=== PATIENT | male | born 1990 | race African-American/Black ===

== ENCOUNTER 2021-01-19 00:34 | Inpatient (IN) ==
[2021-01-19 01:17] LABS: BASOPHILS % (AUTO) 0.4 % (0.2-1.0); EOSINOPHILS # (AUTO) 0.1 x10^3/uL (0.0-0.2); EOSINOPHILS % (AUTO) 0.8 % (0.9-2.9); HEMATOCRIT 32.2 % (42.0-54.0); HEMOGLOBIN 10.3 g/dL (13.5-18.0); LYMPHOCYTES # (AUTO) 1.5 X10^3/uL (1.3-2.9); LYMPHOCYTES % (AUTO) 14.5 % (21.0-51.0); MEAN CORPUSCULAR HEMOGLOBIN 27.1 pg (27.0-34.0); MEAN CORPUSCULAR VOLUME 84.7 fL (80.0-100.0); MEAN PLATELET VOLUME 7.6 fL (7.4-11.0); MONOCYTES # (AUTO) 1.3 x10^3/uL (0.3-0.8); MONOCYTES % (AUTO) 12.3 % (0.0-13.0); NEUTROPHILS # (AUTO) 7.3 x10^3/uL (2.2-4.8); PLATELET COUNT 200 X10^3/uL (150.0-450.0); RED BLOOD COUNT 3.81 X10^6/uL (4.7-6.0); RED CELL DISTRIBUTION WIDTH 17.7 % (11.6-16.5); WHITE BLOOD COUNT 10.1 X10^3/uL (3.6-10.0)
[2021-01-19 01:19] LABS: ALANINE AMINOTRANSFERASE 514 Units/L (12-78); ALBUMIN 2.5 g/dL (3.4-5.0); ALKALINE PHOSPHATASE 158 Units/L (46-116); ASPARTATE AMINO TRANSFERASE 206 Units/L (15-37); BLOOD UREA NITROGEN 27 mg/dL (7-18); CALCIUM 8.1 mg/dL (8.5-10.1); CARBON DIOXIDE 25.7 mmol/L (21-32); CHLORIDE 104 mmol/L (98-107); COR CA(FOR HYPOALB) 9.3 mg/dL (8.5-10.1); CREATININE 1.67 mg/dL (0.70-1.30); SODIUM 137 mmol/L (136-145); TOTAL PROTEIN 6.8 g/dL (6.4-8.2); eGFR NON BLACK RACES 51 (>60)
[2021-01-19] MEDS ORDERED: NS 1000 ML 1,000 ML ONE ×2 (02:00→07:55)
[2021-01-19] MEDS ORDERED: NS 1000 ML 1,000 ML IV ONE (02:06)
--- NOTE | 2021-01-19 02:35 | RAD ---
PROCEDURE: Acute Abdomen Series .HISTORY: Right upper quadrant pain since yesterday with hemoptysis.TECHNIQUE: AP supine and upright abdomen with AP chest x-ray views .COMPARISON: 12/01/2020 chest x-ray.TECHNICAL QUALITY: Satisfactory .FINDINGS:Unchanged cardiomegaly.Normal central vascularity.Clear lungs.No pneumoperitoneum.Mild gas and feces in the colon without abnormal distention. No obstruction or ileus. Mild gas in the stomach.No organomegaly.No abnormal calcifications.No acute bony abnormality.IMPRESSION:1. Nonspecific bowel gas pattern.2. Unchanged cardiomegaly.Electronically signed by: Carlos De La O (Jan 19, 2021 02:33:50)
[2021-01-19] MEDS ORDERED: MORPHINE SULFATE INJ 2 MG INJ IVP ONE ×2 (04:31→07:42)
[2021-01-19] MEDS ORDERED: ZOFRAN INJ 4 MG VIAL IVP ONE (04:31)
--- NOTE | 2021-01-19 04:34 | DR.GENAD ---
HPI Time Seen Time Seen by Provider: 01/19/21 04:26 PCP Primary Care Physician: annmarie HPI Comment HPI Comment: Patient presents with RUQ pain and thinks something is wrong with his gallbladder. Notes that he has been "coughing up blood" for the past 2-3 days. Denies any fever, bad food exposure of known sick contact. Complaint/Symptoms Chief Complaint:: pt c/o coughing up blood . pt's friend had a gatorade bottle with pinkish colored suptum in the bottle COVID-19 Coronavirus risk:travel/contact w/high risk person: No Has patient experienced Coronavirus symptoms: No Source History Provided: Patient Mode of Arrival Mode of Arrival: Wheelchair Timing Onset of Chief Complaint: 01/19/21 PMH PMH Past Medical History: Yes Past Medical History: Asthma and Hypertension Past Medical History Comment: cardiomegaly Past Surgical History: No Family History History of Family Medical Conditions: No Social History Type of Tobacco Use: Cigarettes Does any household member use tobacco: Yes Alcohol Use: Occasionally Do you use any recreational Drugs:: No Lives With: Family Lives Where: Home Travel Risk Coronavirus risk:travel/contact w/high risk person: No Has patient experienced Coronavirus symptoms: No Infectious screening In the last 2 months have you had wt loss of >10#?: NO Have you had fever, night sweats or hemotysis?: No Have you traveled outside the country in the last 6 months?: No Isolation: Standard ROS Review of Systems Constitutional: See HPI All Other Systems: Reviewed and Negative PE Vital Signs Vitals: Temperature 99.1 F Pulse Rate 103 Respiratory Rate 20 Blood Pressure [Right Arm] 129/81 Blood Pressure 111/72 O2 Sat by Pulse Oximetry 98 General Limitations: No Limitations General Appearance: Alert and In No Apparent Distress Head Head Exam: Normal Inspection, Atraumatic and Normocephalic Eyes Eye exam: Normal Appearance, PERRL and EOMI ENT ENT Exam: Normal Exam Neck Neck Exam: Normal Inspection and Trachea Midline Chest Chest Inspection: Normal Inspection and Symmetric Chest Wall Rise Respiratory Respiratory Exam: Normal Lung Sounds Bilat Respiratory Exam: Bilateral: Clear to Auscultation Cardiovascular Cardiovascular Exam: Regular Rate, Normal Rhythm and Normal Heart Sounds Abdominal Exam Abdominal Exam: Normal Inspection, Normal Bowel Sounds and Tenderness Abdominal Tenderness: Diffuse Neurologic Neurological Exam: Alert and Oriented X3 Psychiatric Psychiatric Exam: Normal Affect and Normal Mood Skin Skin Exam: Warm, Dry and Intact ROR Labs Reviewed Result Diagrams: 01/19/21 00:57 04 00:57 Laboratory: WBC 10.1 X10^3/uL (3.6-10.0) H 01/19/21 00:57 RBC 3.81 X10^6/uL (4.7-6.0) L 01/19/21 00:57 Hgb 10.3 g/dL (13.5-18.0) L 01/19/21 00:57 Hct 32.2 % (42.0-54.0) L 01/19/21 00:57 MCV 84.7 fL (80.0-100.0) 01/19/21 00:57 MCH 27.1 pg (27.0-34.0) 01/19/21 00:57 MCHC 32.0 g/dL (33.0-35.0) L 01/19/21 00:57 RDW 17.7 % (11.6-16.5) H 01/19/21 00:57 Plt Count 200 X10^3/uL (150.0-450.0) 01/19/21 00:57 MPV 7.6 fL (7.4-11.0) 01/19/21 00:57 Neut % (Auto) 72.0 % (42.0-75.0) 01/19/21 00:57 Lymph % (Auto) 14.5 % (21.0-51.0) L 01/19/21 00:57 [place] % (Auto) 12.3 % (0.0-13.0) 01/19/21 00:57 Eos % (Auto) 0.8 % (0.9-2.9) L 01/19/21 00:57 Baso % (Auto) 0.4 % (0.2-1.0) 01/19/21 00:57 Neut # (Auto) 7.3 x10^3/uL (2.2-4.8) H 01/19/21 00:57 Lymph # (Auto) 1.5 X10^3/uL (1.3-2.9) 01/19/21 00:57 [place] # (Auto) 1.3 x10^3/uL (0.3-0.8) H 01/19/21 00:57 Eos # (Auto) 0.1 x10^3/uL (0.0-0.2) 01/19/21 00:57 Baso # (Auto) 0.0 X10^3/uL (0.0-0.1) 01/19/21 00:57 Absolute Nucleated RBC 0.1 /100WBC 01/19/21 00:57 Sodium 137 mmol/L (136-145) 01/19/21 00:57 Corrected Sodium TNP 01/19/21 00:57 Potassium 4.5 mmol/L (3.5-5.1) 01/19/21 00:57 Chloride 104 mmol/L (98-107) 01/19/21 00:57 Carbon Dioxide 25.7 mmol/L (21-32) 01/19/21 00:57 BUN 27 mg/dL (7-18) H 01/19/21 00:57 Creatinine 1.67 mg/dL (0.70-1.30) H 01/19/21 00:57 Est GFR (MDRD) Af Amer > 60 (>60) 01/19/21 00:57 Est GFR (MDRD) Non-Af 51 (>60) L 01/19/21 00:57 Glucose 105 mg/dL (65-99) H 01/19/21 00:57 Calcium 8.1 mg/dL (8.5-10.1) L 01/19/21 00:57 Corrected Calcium 9.3 mg/dL (8.5-10.1) 01/19/21 00:57 Total Bilirubin 0.90 mg/dL (0.2-1.0) 01/19/21 00:57 AST 206 Units/L (15-37) H 01/19/21 00:57 ALT 514 Units/L (12-78) H 01/19/21 00:57 Alkaline Phosphatase 158 Units/L (46-116) H 01/19/21 00:57 Creatine Kinase 162 Units/L (39-308) 01/19/21 00:57 CK-MB (CK-2) 1.5 ng/mL (0-4.0) 04 00:57 CK/CKMB % Calc 0.9 % (<4) 01/19/21 00:57 Troponin I 0.12 ng/mL (0-1.5) 01/19/21 00:57 B-Natriuretic Peptide 1840 pg/mL (0-79) H* 01/19/21 00:57 Total Protein 6.8 g/dL (6.4-8.2) 01/19/21 00:57 Albumin 2.5 g/dL (3.4-5.0) L 01/19/21 00:57 Globulin 4.3 g/dL (2.5-4.5) 01/19/21 00:57 Albumin/Globulin Ratio 0.6 Ratio (1.1-2.1) L 01/19/21 00:57 XRAY X-ray Results: PROCEDURE: CT Abdomen and Pelvis without Contrast . HISTORY: Right upper quadrant pain and hemoptysis. TECHNIQUE: Axial images were performed through the abdomen and pelvis without the administration of IV contrast with multiplanar reformations . Oral contrast was not administered . Dose reduction techniques including Automated Exposure Control (AEC) and adjustment of mA and kV were utilized . COMPARISON: 12/25/2020. TECHNICAL QUALITY: Satisfactory . FINDINGS: Consolidation right lower lobe consistent with pneumonia. Some linear scar versus discoid atelectasis left base. Heart size upper limits of normal. Liver, spleen, adrenals, pancreas show no abnormality. Kidneys show no stones or obstruction. Some nonspecific perinephric stranding both kidneys. Normal biliary tract. No abdominal ascites or pneumoperitoneum. Normal aorta. Some stranding throughout the mesentery could be related to edema or inflammation with no loculated fluid collections. No bowel obstruction or inflammation and normal appendix right lower quadrant. Pelvis shows small amount of fluid in the rectovesical pouch could be related to inflammation. No pelvic masses and normal urinary bladder. No acute bony abnormality. IMPRESSION: 1. Mesenteric stranding that could be related to inflammation or edema with the etiology not apparent from the study with small amount of ascites in the rectovesical pouch. 2. No other abnormality involving abdomen or pelvis. 3. Right lower lobe pneumonia. Electronically signed by: Carlos De La O (Jan 19, 2021 05:05:47) PROCEDURE: Acute Abdomen Series . HISTORY: Right upper quadrant pain since yesterday with hemoptysis. TECHNIQUE: AP supine and upright abdomen with AP chest x-ray views . COMPARISON: 12/01/2020 chest x-ray. TECHNICAL QUALITY: Satisfactory . FINDINGS: Unchanged cardiomegaly. Normal central vascularity. Clear lungs. No pneumoperitoneum. Mild gas and feces in the colon without abnormal distention. No obstruction or ileus. Mild gas in the stomach. No organomegaly. No abnormal calcifications. No acute bony abnormality. IMPRESSION: 1. Nonspecific bowel gas pattern. 2. Unchanged cardiomegaly. Electronically signed by: Carlos De La O (Jan 19, 2021 02:33:50) Opioid Opioid Risk Tool Age (Rambo box if 16-45): Yes History of Preadolescent Sexual Abuse: No Total: 1 Total Score Risk Category: Low Risk Copyright: [facility] predicting aberrant behaviors Diagnosis Discharge Problem: Pneumonia Qualifiers: Pneumonia type: due to unspecified organism Laterality: right Lung location: lower lobe of lung Qualified Code(s): J18.9 - Pneumonia, unspecified organism CHF (congestive heart failure) Qualifiers: Heart failure type: unspecified Heart failure chronicity: chronic Qualified Code(s): I50.9 - Heart failure, unspecified
[2021-01-19] MEDS ORDERED: MORPHINE SULFATE INJ 2 MG INJ ONE ×2 (04:38→07:55)
[2021-01-19] MEDS ORDERED: ZOFRAN INJ 4 MG VIAL ONE (04:38)
[2021-01-19 05:04] LABS: CKMB % 0.9 % (<4); CREATINE KINASE MB 1.5 ng/mL (0-4.0); TROPONIN I 0.12 ng/mL (0-1.5)
--- NOTE | 2021-01-19 05:07 | CT ---
PROCEDURE: CT Abdomen and Pelvis without Contrast .HISTORY: Right upper quadrant pain and hemoptysis.TECHNIQUE: Axial images were performed through the abdomen and pelvis without the administration of IV contrast with multiplanar reformations . Oral contrast was not administered . Dose reduction techniques including Automated Exposure Control (AEC) and adjustment of mA and kV were utilized .COMPARISON: 12/25/2020.TECHNICAL QUALITY: Satisfactory .FINDINGS:Consolidation right lower lobe consistent with pneumonia. Some linear scar versus discoid atelectasis left base. Heart size upper limits of normal.Liver, spleen, adrenals, pancreas show no abnormality. Kidneys show no stones or obstruction. Some nonspecific perinephric stranding both kidneys.Normal biliary tract.No abdominal ascites or pneumoperitoneum.Normal aorta.Some stranding throughout the mesentery could be related to edema or inflammation with no loculated fluid collections.No bowel obstruction or inflammation and normal appendix right lower quadrant.Pelvis shows small amount of fluid in the rectovesical pouch could be related to inflammation. No pelvic masses and normal urinary bladder.No acute bony abnormality.IMPRESSION:1. Mesenteric stranding that could be related to inflammation or edema with the etiology not apparent from the study with small amount of ascites in the rectovesical pouch.2. No other abnormality involving abdomen or pelvis.3. Right lower lobe pneumonia.Electronically signed by: Carlos De La O (Jan 19, 2021 05:05:47)
[2021-01-19] MEDS ORDERED: LASIX IVP ONE ×2 (05:09→05:10)
[2021-01-19] MEDS ORDERED: NS 250 ML IV 250 ML IV ONE (07:55)
[2021-01-19] MEDS ORDERED: ZITHROMAX INJ 500 MG VIAL IV ONE (07:55)
[2021-01-19] MEDS: ZITHROMAX INJ 500 MG VIAL 500 MG in NS 250 ML IV 250 ML IV SCH ×2 (08:09→09:11)
[2021-01-19] MEDS: NS 1000 ML 1,000 ML IV SCH (08:09)
[2021-01-19 08:27] LABS: CREATINE KINASE MB 1.4 ng/mL (0-4.0); TROPONIN I 0.11 ng/mL (0-1.5)
[2021-01-19] MEDS ORDERED: LEVAQUIN TAB 750 MG PO SCH (09:00)
[2021-01-19] MEDS ORDERED: LASIX PO SCH (09:37)
[2021-01-19] MEDS ORDERED: LR 1000 ML IV 1,000 ML IV ONE (09:39)
[2021-01-19] MEDS ORDERED: DILAUDID INJ IVP PRN (09:41)
[2021-01-19] MEDS: TORADOL 30 MG VIAL IVP PRN ×2 (09:52→23:20)
[2021-01-19] MEDS: COREG TAB 12.5 MG PO SCH ×2 (10:00→20:52)
[2021-01-19] MEDS: ENTRESTO 24/26 MG TAB PO SCH ×2 (10:00→20:52)
[2021-01-19 11:14] VITALS: BMI 26.4
[2021-01-19] MEDS ORDERED: ZOFRAN INJ 4 MG VIAL IVP PRN (12:45)
[2021-01-19 14:53] LABS: CKMB % 1.3 % (<4); CREATINE KINASE MB 1.5 ng/mL (0-4.0); TROPONIN I 0.1 ng/mL (0-1.5)
[2021-01-19 20:32] LABS: CKMB % 1.9 % (<4); CREATINE KINASE MB 2.1 ng/mL (0-4.0); TROPONIN I 0.21 ng/mL (0-1.5)
[2021-01-19] MEDS ORDERED: XOPENEX 1.25 MG/3 ML NEBULE NEB ONE (20:54)
[2021-01-19] MEDS: XOPENEX 1.25 MG/3 ML NEBULE NEB SCH (21:12)
[2021-01-20] MEDS: NS 1000 ML 1,000 ML IV SCH ×4 (00:45→14:51)
[2021-01-20] MEDS: ADRENALINE CHL INJ IVP PRN ×7 (01:02→12:59)
--- NOTE | 2021-01-20 04:29 | RAD ---
PROCEDURE: Chest X-ray 1 View .HISTORY: Follow-up chest pain.TECHNIQUE: PA view.COMPARISON: 12/01/2020.TECHNICAL QUALITY: Satisfactory .FINDINGS:Unchanged cardiomegaly.Mediastinum and hilar regions show no masses or lymphadenopathy .Normal central vascularity .No pulmonary consolidation, masses, pleural fluid, or pneumothorax .No acute bony abnormality .IMPRESSION:Unchanged cardiomegaly with no other evidence of active disease.Electronically signed by: Carlos De La O (Jan 20, 2021 04:27:31)
[2021-01-20] MEDS: LEVAQUIN PREMIX IV 750 MG 750 MG/150 ML BAG IV SCH ×2 (06:08→14:51)
[2021-01-20 06:11] LABS: BASOPHILS % (AUTO) 0.2 % (0.2-1.0); EOSINOPHILS % (AUTO) 0.1 % (0.9-2.9); HEMATOCRIT 34.3 % (42.0-54.0); HEMOGLOBIN 10.8 g/dL (13.5-18.0); LYMPHOCYTES # (AUTO) 1.9 X10^3/uL (1.3-2.9); LYMPHOCYTES % (AUTO) 9.6 % (21.0-51.0); MEAN CORPUSCULAR HEMOGLOBIN 26.6 pg (27.0-34.0); MEAN CORPUSCULAR HGB CONC 31.5 g/dL (33.0-35.0); MEAN CORPUSCULAR VOLUME 84.5 fL (80.0-100.0); MEAN PLATELET VOLUME 8.1 fL (7.4-11.0); MONOCYTES # (AUTO) 2.1 x10^3/uL (0.3-0.8); MONOCYTES % (AUTO) 11.1 % (0.0-13.0); NEUTROPHILS # (AUTO) 15.3 x10^3/uL (2.2-4.8); PLATELET COUNT 190 X10^3/uL (150.0-450.0); RED BLOOD COUNT 4.05 X10^6/uL (4.7-6.0); RED CELL DISTRIBUTION WIDTH 17.6 % (11.6-16.5); WHITE BLOOD COUNT 19.3 X10^3/uL (3.6-10.0)
[2021-01-20 06:24] LABS: ALANINE AMINOTRANSFERASE 387 Units/L (12-78); ALBUMIN 2.3 g/dL (3.4-5.0); ALKALINE PHOSPHATASE 150 Units/L (46-116); ASPARTATE AMINO TRANSFERASE 113 Units/L (15-37); BLOOD UREA NITROGEN 34 mg/dL (7-18); CALCIUM 8.1 mg/dL (8.5-10.1); CARBON DIOXIDE 24.9 mmol/L (21-32); CHLORIDE 103 mmol/L (98-107); COR CA(FOR HYPOALB) 9.5 mg/dL (8.5-10.1); SODIUM 135 mmol/L (136-145); TOTAL PROTEIN 6.7 g/dL (6.4-8.2); eGFR NON BLACK RACES 54 (>60)
[2021-01-20] MEDS: ENTRESTO 24/26 MG TAB PO SCH ×2 (08:41→21:58)
[2021-01-20] MEDS: ZITHROMAX INJ 500 MG VIAL 500 MG in NS 250 ML IV 250 ML IV SCH (08:41)
[2021-01-20] MEDS: COREG TAB 12.5 MG PO SCH (08:41)
[2021-01-20] MEDS: XOPENEX 1.25 MG/3 ML NEBULE NEB SCH ×4 (09:20→21:05)
[2021-01-20] MEDS: LEVOPHED INJ 8 MG in D5W 250 ML IV 242 ML IV PRN ×2 (10:45→15:23)
[2021-01-20] MEDS ORDERED: LEVOPHED INJ 8 MG in D5W 250 ML IV 242 ML IV PRN (10:45)
[2021-01-20] MEDS ORDERED: NS 500 ML IV 500 ML IV ONE (10:48)
[2021-01-20 10:53] LABS: CREATINE KINASE MB 1.9 ng/mL (0-4.0); TROPONIN I 0.41 ng/mL (0-1.5)
[2021-01-20] MEDS: SODIUM BICARBONATE 8.4% INJ ADULT IVP PRN ×4 (11:08→13:09)
[2021-01-20 11:18] LABS: BILIRUBIN,URINE 1+ (NEGATIVE); BLOOD/HEMOGLOBIN,URINE 1+ (NEGATIVE); GLUCOSE, URINE NEGATIVE (NEGATIVE); KETONES,URINE 1+ (NEGATIVE); LEUKOCYTE ESTERASE ,URINE 1+ (NEGATIVE); NITRITES,URINE NEGATIVE (NEGATIVE); PROTEIN,URINE 2+ (NEGATIVE); UROBILINOGEN,URINE 3+ (NORMAL)
[2021-01-20] MEDS: ADRENALINE CHL INJ 3 MG in NS 250 ML IV 247 ML IV PRN ×2 (11:20→23:00)
[2021-01-20] MEDS: DIPRIVAN PREMIX 1 GRAM IV 1,000 MG/100 ML VIAL IV PRN ×3 (11:21→19:50)
[2021-01-20] MEDS ORDERED: DIPRIVAN PREMIX 1 GRAM IV 1,000 MG/100 ML VIAL ONE (11:21)
[2021-01-20 11:49] LABS: ABG BASE EXCESS -16.1 mmol/L (-2.0-2.0)
[2021-01-20 11:54] LABS: ABG HCO3 12.7 mmol/L (22-26)
--- NOTE | 2021-01-20 11:54 | RAD ---
HISTORYET TUBE PLACMENT, UNRESPONSIVESTUDYCHEST, 1 [id number]/08/2021, the study from 7 hours agoFINDINGSThe endotracheal tube is anatomic in position in the trachea.Abnormal opacity in the right lung base could be pneumonia, better appreciated on the CT 01/19/2021. Left lung clear. No pleural effusion or pneumothorax.The heart size is magnified.Bones are unremarkable.EKG leads are noted.IMPRESSION1. Uncomplicated intubation2. Unchanged right lower lobe pneumoniaElectronically signed by: Elvin Mayfield (Jan 20, 2021 11:51:43)
[2021-01-20 11:59] LABS: APPEARANCE,URINE CLOUDY (CLEAR); BACTERIA,URINE 1+ /HPF (NEGATIVE); COLOR,URINE YELLOW (YELLOW); SQUAMOUS EPITHELIAL CELL,UR FEW /HPF (NEGATIVE); TRANSITIONAL EPI CELLS,URINE MANY /HPF (NEGATIVE)
[2021-01-20 12:00] LABS: MUCUS,URINE FEW /HPF (NEGATIVE); SPERM,URINE RARE /HPF (NEGATIVE)
[2021-01-20] MEDS ORDERED: LASIX IVP ONE (18:23)
[2021-01-20] MEDS ORDERED: COREG TAB 12.5 MG PO SCH (21:00)
[2021-01-20] MEDS ORDERED: NORCURON INJ 10 MG VIAL ONE (21:15)
--- NOTE | 2021-01-20 22:14 | RAD ---
EXAM: CHEST X-RAYHISTORY: Verification of old G-tube and central line placement.TECHNIQUE: AP chest x-ray dated January 20, 2021 at 9:51 PM.COMPARISON: CXR dated January 20, 2021 at 10:59 AM.FINDINGS:Right internal jugular central venous catheter with distal tip in the proximal cavoatrial junction (adequate position). Recommend careful clinical correlation to ensure venous blood return. A nasogastric tube is noted in situ with the distal tip in the lateral aspect of the proximal to middle body of the stomach. An endotracheal tube is noted in situ with the distal tip approximately 5.6 cm above the omer (adequate position).There is evidence for cardiomegaly. The pulmonary vascularity and interstitial markings are diffusely prominent, consistent with mild CHF or volume overload in the appropriate clinical setting; differential diagnosis includes (but is not limited to) mild bronchitis and interstitial pneumonia in the appropriate clinical setting.There is no gross focal lung consolidation, pleural effusion, or pneumothorax seen. The visualized bony structures are within normal limits.IMPRESSION:1. Findings consistent with mild CHF or volume overload in the appropriate clinical setting (with significant interval progression of infiltrates compared with the previous exam); DDX includes (but is not limited to) mild bronchitis and interstitial pneumonia in the appropriate clinical setting.2. Recommend clinical correlation and appropriate follow-up CXR evaluation to ensure interval clearance as clinically warranted.3. Right internal jugular central venous catheter with distal tip in the proximal cavoatrial junction (adequate position). Recommend careful clinical correlation to ensure venous blood return.4. A nasogastric tube is noted in situ with the distal tip in the lateral aspect of the proximal to middle body of the stomach.5. An endotracheal tube is noted in situ with the distal tip approximately 5.6 cm above the omer (adequate position).Electronically signed by: Phil Jackson (Jan 20, 2021 22:12:00)
[2021-01-20 22:42] VITALS: BP 112/75
[2021-01-21] MEDS ORDERED: LASIX PO SCH (10:00)
[2021-01-24 06:34] LABS: HEPATITIS B SURFACE ANTIGEN Negative (Negative)
== END 2021-01-20 22:35 | disposition short-term general hospital (02) | DRG 208 ==
LOC: MED/SURG 00:35 → ER 00:35 → MED/SURG 09:10 → ICU 01-20 10:20
PROVIDERS: ADMIT Obstetrics & Gynecology Obstetrics; ATTEND Obstetrics & Gynecology Obstetrics
DX: J18.8 Other pneumonia, unspecified organism; Z66 Do not resuscitate; Z20.822 Contact with and (suspected) exposure to COVID-19; R94.31 Abnormal electrocardiogram [ECG] [EKG]; J90 Pleural effusion, not elsewhere classified; I50.9 Heart failure, unspecified

== ENCOUNTER 2023-10-31 23:27 | Inpatient (IN) ==
--- NOTE | 2023-11-01 01:00 | DR.EXTPAIN ---
HPI Time seen Time Seen by Provider: 10/31/23 23:58 PCP Primary Care Physician: None Complaint/Symptoms Chief Complaint Doctor Comments: Patient has h/o asthma and h/o CHF .This am he began to feel sob and have abdl pain.Patient is noncompliant with his meds. He should be taking lasix 40mg daily,eliquis 5mg,atorvastatin 40mg,Zebeta 10mg,digoxin 250mcg,[id number].Patient also has a h/o methamphetamine use.Patient denies:Fever,productive cough,dizziness,n,v,back pain. Chief Complaint:: Patient ambulatory into the ED today with c/o shortness of breath and stomach pains. Patient's significant other states he has been in the bed all day stating he is having a hard time breathing. In triage he is observed grunting but no respiratory distress is noted. He is taking full, deep breaths. Self Treatment fo Chief Complaint: albuterol breathing tx today COVID-19 Coronavirus risk:travel/contact w/high risk person: No Has patient experienced Coronavirus symptoms: Yes Coronavirus symptoms experienced: Shortness of Breath Source History Provided: Patient and Significant Other Mode of arrival Mode of Arrival: Ambulatory Timing Onset of Chief Complaint: 10/31/23 PMH PMH Past Medical History: Yes Past Medical History: CHF and Hypertension Past Surgical History: Yes Surgical History: Unknown Family History History of Family Medical Conditions: No Family Medical History: Hypertension Social History Does patient currently use any type of tobacco product: Yes Have you used tobacco products in the last 12 months: Yes Type of Tobacco Use: Cigarettes Does any household member use tobacco: Yes Alcohol Use: Occasionally Do you use any recreational Drugs:: No Lives With: Spouse Lives Where: Home Travel Risk Coronavirus risk:travel/contact w/high risk person: No Has patient experienced Coronavirus symptoms: Yes Coronavirus symptoms experienced: Shortness of Breath Infectious screening In the last 2 months have you had wt loss of >10#?: NO Have you had fever, night sweats or hemotysis?: No Have you traveled outside the country in the last 6 months?: No Isolation: Standard ROS Review of Systems Constitutional: Other (Patient is grunting and lethargic) Eyes: No Symptoms Reported ENTM: No Symptoms Reported Respiratoy: Dry Cough Cardiovascular: Chest Pain Gastrointestinal/Abdominal: Abdominal Pain Genitourinary: No Symptoms Reported Neurological: No Symptoms Reported Musculoskeletal: No Symptoms Reported Integumentary: No Symptoms Reported Hematologic/Lymphatic: No Symptoms Reported Endocrine: No Symptoms Reported Psychiatric: No Symptoms Reported All Other Systems: Reviewed and Negative PE Vital Signs Vitals: Vital Signs Pulse Rate [Left Brachial] 105 Pulse Rate [Left Brachial] 103 Pulse Rate [Left Brachial] 106 Pulse Rate [Left Brachial] 106 Pulse Rate 105 Pulse Rate 105 Pulse Rate 108 Pulse Rate 105 Pulse Rate 103 Pulse Rate 104 Pulse Rate 105 Pulse Rate 108 Pulse Rate 107 Pulse Rate 105 Pulse Rate 109 Pulse Rate 108 Pulse Rate 104 Pulse Rate 104 Pulse Rate 107 Pulse Rate 107 Pulse Rate 105 Pulse Rate 104 Pulse Rate 105 Pulse Rate 106 Pulse Rate 107 Respiratory Rate 23 Respiratory Rate 18 Respiratory Rate 20 Respiratory Rate 20 Respiratory Rate 21 Respiratory Rate 21 Respiratory Rate 20 Respiratory Rate 22 Respiratory Rate 20 Blood Pressure [Left Arm] 159/107 Blood Pressure [Left Arm] 163/107 Blood Pressure [Left Arm] 141/90 Blood Pressure [Left Arm] 138/91 Blood Pressure [Left Arm] 149/111 Blood Pressure 169/98 Blood Pressure 163/107 Blood Pressure 159/107 Blood Pressure 163/107 Blood Pressure 161/111 Blood Pressure 143/98 Blood Pressure 143/98 Blood Pressure 141/90 Blood Pressure 138/91 Blood Pressure 153/105 Blood Pressure 147/105 Blood Pressure 149/111 Blood Pressure 149/111 Blood Pressure 137/106 Blood Pressure 132/88 Blood Pressure 162/98 Blood Pressure 158/101 O2 Sat by Pulse Oximetry 98 O2 Sat by Pulse Oximetry 99 O2 Sat by Pulse Oximetry 97 O2 Sat by Pulse Oximetry 99 O2 Sat by Pulse Oximetry 98 O2 Sat by Pulse Oximetry 96 O2 Sat by Pulse Oximetry 97 O2 Sat by Pulse Oximetry 98 O2 Sat by Pulse Oximetry 98 O2 Sat by Pulse Oximetry 96 O2 Sat by Pulse Oximetry 95 O2 Sat by Pulse Oximetry 99 O2 Sat by Pulse Oximetry 95 O2 Sat by Pulse Oximetry 100 O2 Sat by Pulse Oximetry 98 O2 Sat by Pulse Oximetry 99 O2 Sat by Pulse Oximetry 98 O2 Sat by Pulse Oximetry 97 O2 Sat by Pulse Oximetry 96 O2 Sat by Pulse Oximetry 97 O2 Sat by Pulse Oximetry 95 O2 Sat by Pulse Oximetry 99 O2 Sat by Pulse Oximetry 100 O2 Sat by Pulse Oximetry 100 O2 Sat by Pulse Oximetry 100 General Limitations: No Limitations General Appearance: Lethargic Head Head Exam: Normal Inspection Eyes Eye exam: Normal Appearance ENT ENT Exam: Normal Exam Neck Neck Exam: Normal Inspection Chest Chest Inspection: Normal Inspection Respiratory Respiratory Exam: Normal Lung Sounds Bilat Respiratory Exam: Bilateral: Decreased Breath Sounds Cardiovascular Cardiovascular Exam: Regular Rate and Tachycardia Abdominal Exam Abdominal Exam: Normal Inspection, Normal Bowel Sounds and Soft Extremities Extremities Exam: Normal Inspection Back Back Exam: Normal Inspection Neurological Neurological Exam: Alert, Oriented X3 and CN II-XII Intact Psychiatric Psychiatric Exam: Normal Affect and Normal Mood Skin Skin Exam: Warm, Dry, Intact and Normal Color MDM Differential Diagnosis Differential Diagnosis: Other (CHF,SC,Pneumonia,electrolyte disorder,covid- 19,rsv,influenza a,b) COURSE Treatment Treatment: Patient was brought to a monitored room and IV access was initiated. Labs and tests were ordered. Patient received a fluid bolus of 500 cc for his tachycardia. His chest x-ray revealed cardiomegaly, mild chf. His labs revealed a BNP of 2670. Patient was given a DuoNeb, Solu-Medrol 125 mg IV, Lasix 60 mg IV. Patient's creatinine is mildly elevated 1.34, his COVID-19, influenza a and B, RSV were all negative, his D-dimer is 0.79, his troponin #1 is 114 and troponin #2 is 96.6. Patient's EKG #1 revealed T wave inversions in II, II, and aVF and EKG #2 revealed T wave inversions in II, III, aVF and V4 through V6. Patient has had total urine output of [address] case [address] Leahy and he would like to admit the patient for CHF exacerbation. Patient has been stable in the ED. ROR Labs Reviewed Laboratory Results Reviewed?: Yes 11/01/23 01:34 11/01/23 01:34 Laboratory: WBC 11.0 X10^3/uL (3.6-10.0) H 11/01/23 01:34 RBC 4.07 X10^6/uL (4.7-6.0) L 11/01/23:34 Hgb 12.1 g/dL (13.5-18.0) L 11/01/23 01:34 Hct 37.0 % (42.0-54.0) L 11/01/23:34 MCV 91.0 fL (80.0-100.0) 11/01/23 01:34 MCH 29.6 pg (27.0-34.0) 11/01/23 01:34 MCHC 32.5 g/dL (33.0-35.0) L 11/01/23:34 RDW 16.0 % (11.6-16.5) 11/01/23 01:34 Plt Count 214 X10^3/uL (150.0-450.0) 11/01/23 01:34 MPV 7.7 fL (7.4-11.0) 11/01/23 01:34 Neut % (Auto) 61.7 % (42.0-75.0) 11/01/23 01:34 Lymph % (Auto) 28.1 % (21.0-51.0) 11/01/23 01:34 [place] % (Auto) 7.0 % (0.0-13.0) 11/01/23 01:34 Eos % (Auto) 2.8 % (0.9-2.9) 11/01/23 01:34 Baso % (Auto) 0.4 % (0.2-1.0) 11/01/23 01:34 Neut # (Auto) 6.8 x10^3/uL (2.2-4.8) H 11/01/23 01:34 Lymph # (Auto) 3.1 X10^3/uL (1.3-2.9) H 11/01/23 01:34 [place] # (Auto) 0.8 x10^3/uL (0.3-0.8) 11/01/23 01:34 Eos # (Auto) 0.3 x10^3/uL (0.0-0.2) H 11/01/23 01:34 Baso # (Auto) 0.0 X10^3/uL (0.0-0.1) 11/01/23:34 Absolute Nucleated RBC 0.1 /100WBC 11/01/23 01:34 PT 16.6 SECONDS (11.8-14.3) 11/01/23 01:34 INR Target Range - 11/01/23 01:34 INR 1.37 (0.8-1.3) H 11/01/23:34 APTT 32.9 SECONDS (22.9-36.5) 11/01/23 01:34 PTT Comment - 11/01/23 01:34 D-Dimer 0.79 ug/ml (0.0-0.57) H 11/01/23 01:34 Sodium 140 mmol/L (136-145) 11/01/23 01:34 Corrected Sodium TNP 11/01/23 01:34 Potassium 4.4 mmol/L (3.5-5.1) 11/01/23 01:34 Chloride 108 mmol/L (98-107) H 11/01/23 01:34 Carbon Dioxide 24.1 mmol/L (21-32) 11/01/23 01:34 BUN 22 mg/dL (7-18) H 11/01/23 01:34 Creatinine 1.34 mg/dL (0.70-1.30) H 11/01/23 01:34 Creatinine Cancelled 11/01/23 01:34 Est GFR (MDRD) Af Amer > 60 (>60) 11/01/23 01:34 Est GFR (MDRD) Non-Af > 60 (>60) 11/01/23 01:34 Glucose 92 mg/dL (65-99) 11/01/23 01:34 Calcium 8.2 mg/dL (8.5-10.1) L 11/01/23 01:34 Corrected Calcium 9.2 mg/dL (8.5-10.1) 11/01/23 01:34 Total Bilirubin 0.60 mg/dL (0.2-1.0) 11/01/23 01:34 AST 33 Units/L (15-37) 11/01/23 01:34 ALT 36 Units/L (12-78) 11/01/23 01:34 Alkaline Phosphatase 110 Units/L (46-116) 11/01/23 01:34 Creatine Kinase 132 Units/L (39-308) 11/01/23 01:34 Troponin I High Sens 96.6 ng/L (4.0-60.0) H* 11/01/23 04:30 B-Natriuretic Peptide 2670 pg/mL (0-79) H 11/01/23 01:34 Total Protein 6.5 g/dL (6.4-8.2) 11/01/23 01:34 Albumin 2.7 g/dL (3.4-5.0) L 11/01/23 01:34 Globulin 3.8 g/dL (2.5-4.5) 11/01/23 01:34 Albumin/Globulin Ratio 0.7 Ratio (1.1-2.1) L 11/01/23 01:34 Amylase 43 Units/L (25-115) 11/01/23 01:34 Lipase 35 Units/L (16-77) 11/01/23 01:34 Specimen Type Clean catch urine 11/01/23 02:32 Urine Color Dark yellow (YELLOW) 11/01/23 02:32 Urine Appearance Clear (CLEAR) 11/01/23 02:32 Urine pH 6.0 (5.0 - 8.0) 11/01/23 02:32 Ur Specific [place] 1.025 (1.000-1.030) 11/01/23 02:32 Urine Protein 2+ (NEGATIVE) 11/01/23 02:32 Urine Glucose (UA) Negative (NEGATIVE) 11/01/23 02:32 Urine Ketones Negative (NEGATIVE) 11/01/23 02:32 Urine Blood Negative (NEGATIVE) 11/01/23 02:32 Urine Nitrite Negative (NEGATIVE) 11/01/23 02:32 Urine Bilirubin Negative (NEGATIVE) 11/01/23 02:32 Urine Urobilinogen 1+ (NORMAL) 11/01/23 02:32 Ur Leukocyte Esterase Negative (NEGATIVE) 11/01/23 02:32 Urine RBC None seen /HPF (0-3) 11/01/23 02:32 Urine WBC 0-2 /HPF (0-5) 11/01/23 02:32 Ur Squamous Epith Cells Rare /HPF (NEGATIVE) 11/01/23 02:32 Urine Bacteria Trace /HPF (NEGATIVE) 11/01/23 02:32 Urine Mucus Few /HPF (NEGATIVE) 11/01/23 02:32 Ur Culture Indicated? No/not indicated 11/01/23 02:32 Urine Opiates Screen Negative (NEG=<300) 11/01/23 02:32 Urine Methadone Screen Negative (NEG=<300) 11/01/23 02:32 Ur Barbiturates Screen Negative (NEG=<200) 11/01/23 02:32 Ur Phencyclidine Scrn Negative (NEG=<25) 11/01/23 02:32 Ur Amphetamines Screen Positive (NEG=<1000) 11/01/23 02:32 U Benzodiazepines Scrn Negative (NEG=<200) 11/01/23 02:32 Urine Cocaine Screen Negative (NEG=<300) 11/01/23 02:32 U Marijuana (THC) Screen Negative (NEG=<50) 11/01/23 02:32 SARS-CoV-2 (PCR) Negative (NEGATIVE) 11/01/23 01:16 Influenza Type A (PCR) Negative (NEGATIVE) 11/01/23 01:16 Influenza Type B (PCR) Negative (NEGATIVE) 11/01/23 01:16 RSV (PCR) Negative (NEGATIVE) 11/01/23 01:16 XRAY XRAY Interpreted by: Radiologist X-ray Results: EXAM: CHEST, 1 VIEW HISTORY: Pt amb into the ED with c/o SOB COMPARISON: 07/30/2023 FINDINGS: The trachea is midline. The cardiac silhouette is mildly enlarged.. Mild pulmonary vascular congestion.. The bony thorax is unremarkable. IMPRESSION: Mild cardiomegaly with mild pulmonary vascular congestion new from previous 07/30/2023 THIS IS AN ELECTRONICALLY VERIFIED FINAL REPORT 11/01/2023 2:13 AM - Electronically signed by Travis Benjamin MD EXAM: CT ABDOMEN AND PELVIS WITHOUT CONTRAST HISTORY: GENERALIZED ABD PAIN, SOB, LK FOR OBSTR/PER; HTN, CHF COMPARISON: None TECHNIQUE: Axial images were obtained of the abdomen and pelvis without IV contrast. Sagittal and coronal reformatted images were provided. All images were reviewed in a variety of windows and levels. RADIATION REDUCTION TECHNIQUE: Automated exposure control, adjustment of the mA or kV according to patient size, or iterative reconstruction techniques were used. FINDINGS: Please note that lack of IV contrast does limit evaluation of the soft tissues and vascular detail. The visualized lower lung zones small right pleural effusion with right basilar subsegmental atelectasis or infiltrate. The heart size is mildly enlarged. There is no evidence of a pericardial effusion. The liver, spleen, pancreas, adrenal glands, and kidneys are grossly unremarkable. The gallbladder is grossly unremarkable. There is no evidence of stones or signs of obstructive uropathy. The stomach, small bowel, and colon are grossly unremarkable. There are scattered air-fluid levels throughout the abdomen raising the possibility of enteritis or ileus. None there are no inflammatory changes in the right lower quadrant to suggest secondary signs of acute appendicitis. Normal appendix right lower quadrant. There is no evidence of retroperitoneal or mesenteric lymphadenopathy. The visualized bones are intact. There are no concerning lytic or blastic lesions identified. IMPRESSION: Mild cardiomegaly Small right pleural effusion with right basilar subsegmental atelectasis and/or infiltrate. Scattered air-fluid levels throughout the abdomen raising the possibility of enteritis or ileus. THIS IS AN ELECTRONICALLY VERIFIED FINAL REPORT 11/01/2023 3:56 AM - Electronically signed by Travis Benjamin MD EKG Compared to prior EKG Dated: 11/01/23 Rate: 106 [place]: Normal ST: Ischemia (Twave inversion II/III/AVF) Opioid Opioid Risk Tool Age (Rambo box if 16-45): Yes History of Preadolescent Sexual Abuse: No Total: 1 Total Score Risk Category: Low Risk Copyright: Mani CUNHA predicting aberrant behaviors Discharge Plan Diagnosis Discharge Problem: Acute exacerbation of CHF (congestive heart failure) Discharge Plan Patient Disposition: ADMITTED INPATIENT Condition: Stable ADDITIONAL NOTES Additional Notes Additional Notes: EKG#2 04:48 Rate 106 [place] nml Twave inversions II/III/AVF V4-V6
[2023-11-01] MEDS ORDERED: NS 1,000 ML IV 1,000 ML ONE (01:09)
[2023-11-01] MEDS ORDERED: SOLU-Medrol 125 MG VIAL ONE (01:09)
[2023-11-01] MEDS ORDERED: DUONEB 0.5 MG/3 MG (3 mL) NEB ONE ×2 (01:15→01:26)
[2023-11-01] MEDS ORDERED: SOLU-Medrol 125 MG VIAL IVP ONE (01:24)
[2023-11-01] MEDS ORDERED: NS 1,000 ML IV 1,000 ML IV ONE (01:24)
--- NOTE | 2023-11-01 02:00 | EKG ---
Test Reason : chest pain Blood Pressure : */* mmHG Vent. Rate : 106 BPM Atrial Rate : 106 BPM P-R Int : 140 ms QRS Dur : 86 ms QT Int : 346 ms P-R-T Axes : 83 62 -78 degrees QTc Int : 459 ms Sinus tachycardia Possible Left atrial enlargement T wave abnormality, consider inferior ischemia Abnormal ECG When compared with ECG of 30-JUL-2023 07:59, T wave inversion now evident in Inferior leads Confirmed by Artis Fernandez ([id number]) on 11/01/2023 3:15:26 PM Referred By: Confirmed By: Artis Fernandez
[2023-11-01 02:15] LABS: BASOPHILS % (AUTO) 0.4 % (0.2-1.0); EOSINOPHILS # (AUTO) 0.3 x10^3/uL (0.0-0.2); EOSINOPHILS % (AUTO) 2.8 % (0.9-2.9); HEMOGLOBIN 12.1 g/dL (13.5-18.0); LYMPHOCYTES # (AUTO) 3.1 X10^3/uL (1.3-2.9); LYMPHOCYTES % (AUTO) 28.1 % (21.0-51.0); MEAN CORPUSCULAR HEMOGLOBIN 29.6 pg (27.0-34.0); MEAN CORPUSCULAR HGB CONC 32.5 g/dL (33.0-35.0); MEAN PLATELET VOLUME 7.7 fL (7.4-11.0); MONOCYTES # (AUTO) 0.8 x10^3/uL (0.3-0.8); NEUTROPHILS # (AUTO) 6.8 x10^3/uL (2.2-4.8); NEUTROPHILS % (AUTO) 61.7 % (42.0-75.0); PLATELET COUNT 214 X10^3/uL (150.0-450.0); RED BLOOD COUNT 4.07 X10^6/uL (4.7-6.0)
--- NOTE | 2023-11-01 02:16 | RAD ---
EXAM:CHEST, 1 VIEWHISTORY:Pt amb into the ED with c/o SOBCOMPARISON:07/30/2023FINDINGS:The trachea is midline. The cardiac silhouette is mildly enlarged.. Mild pulmonary vascular congestion.. The bony thorax is unremarkable.IMPRESSION:Mild cardiomegaly with mild pulmonary vascular congestion new from previous 07/30/2023THIS IS AN ELECTRONICALLY VERIFIED FINAL REPORT11/01/2023 2:13 AM - Electronically signed by Travis Benjamin MD
[2023-11-01 02:21] LABS: ALANINE AMINOTRANSFERASE 36 Units/L (12-78); ALBUMIN 2.7 g/dL (3.4-5.0); ALKALINE PHOSPHATASE 110 Units/L (46-116); AMYLASE 43 Units/L (25-115); ASPARTATE AMINO TRANSFERASE 33 Units/L (15-37); BLOOD UREA NITROGEN 22 mg/dL (7-18); CALCIUM 8.2 mg/dL (8.5-10.1); CARBON DIOXIDE 24.1 mmol/L (21-32); CHLORIDE 108 mmol/L (98-107); COR CA(FOR HYPOALB) 9.2 mg/dL (8.5-10.1); CREATININE 1.34 mg/dL (0.70-1.30); GLUCOSE 92 mg/dL (65-99); LIPASE 35 Units/L (16-77); POTASSIUM 4.4 mmol/L (3.5-5.1); SODIUM 140 mmol/L (136-145); TOTAL PROTEIN 6.5 g/dL (6.4-8.2); eGFR NON BLACK RACES > 60 (>60)
[2023-11-01] MEDS ORDERED: LASIX IVP ONE ×2 (02:54→03:02)
[2023-11-01] MEDS ORDERED: LASIX ONE (02:54)
[2023-11-01 03:12] LABS: BILIRUBIN,URINE NEGATIVE (NEGATIVE); BLOOD/HEMOGLOBIN,URINE NEGATIVE (NEGATIVE); GLUCOSE, URINE NEGATIVE (NEGATIVE); KETONES,URINE NEGATIVE (NEGATIVE); LEUKOCYTE ESTERASE ,URINE NEGATIVE (NEGATIVE); NITRITES,URINE NEGATIVE (NEGATIVE); PROTEIN,URINE 2+ (NEGATIVE); UROBILINOGEN,URINE 1+ (NORMAL)
[2023-11-01 03:27] LABS: APPEARANCE,URINE CLEAR (CLEAR); BACTERIA,URINE TRACE /HPF (NEGATIVE); COLOR,URINE DARK YELLOW (YELLOW); RBC,URINE NONE SEEN /HPF (0-3); SQUAMOUS EPITHELIAL CELL,UR RARE /HPF (NEGATIVE)
--- NOTE | 2023-11-01 04:00 | CT ---
EXAM:CT ABDOMEN AND PELVIS WITHOUT CONTRASTHISTORY:GENERALIZED ABD PAIN, SOB, LK FOR OBSTR/PER; HTN, CHFCOMPARISON:NoneTECHNIQUE:Axial images were obtained of the abdomen and pelvis without IV contrast. Sagittal and coronal reformatted images were provided. All images were reviewed in a variety of windows and levels.RADIATION REDUCTION TECHNIQUE: Automated exposure control, adjustment of the mA or kV according to patient size, or iterative reconstruction techniques were used.FINDINGS:Please note that lack of IV contrast does limit evaluation of the soft tissues and vascular detail.The visualized lower lung zones small right pleural effusion with right basilar subsegmental atelectasis or infiltrate. The heart size is mildly enlarged. There is no evidence of a pericardial effusion.The liver, spleen, pancreas, adrenal glands, and kidneys are grossly unremarkable. The gallbladder is grossly unremarkable.There is no evidence of stones or signs of obstructive uropathy.The stomach, small bowel, and colon are grossly unremarkable. There are scattered air-fluid levels throughout the abdomen raising the possibility of enteritis or ileus. None there are no inflammatory changes in the right lower quadrant to suggest secondary signs of acute appendicitis. Normal appendix right lower quadrant.There is no evidence of retroperitoneal or mesenteric lymphadenopathy.The visualized bones are intact. There are no concerning lytic or blastic lesions identified.IMPRESSION:Mild cardiomegalySmall right pleural effusion with right basilar subsegmental atelectasis and/or infiltrate.Scattered air-fluid levels throughout the abdomen raising the possibility of enteritis or ileus.THIS IS AN ELECTRONICALLY VERIFIED FINAL REPORT11/01/2023 3:56 AM - Electronically signed by Travis Benjamin MD
--- NOTE | 2023-11-01 04:57 | EKG ---
Test Reason : repeat Blood Pressure : */* mmHG Vent. Rate : 106 BPM Atrial Rate : 106 BPM P-R Int : 136 ms QRS Dur : 92 ms QT Int : 352 ms P-R-T Axes : 65 37 196 degrees QTc Int : 467 ms Sinus tachycardia Right atrial enlargement Left ventricular hypertrophy with repolarization abnormality ( Sokolow-Trimble ) Abnormal ECG When compared with ECG of 01-NOV-2023 01:58, (Unconfirmed) ST now depressed in Lateral leads -consider ischemia T wave inversion now evident in Lateral leads Confirmed by Chris Adame MD ([id number]) on 11/01/2023 8:30:11 AM Referred By: Confirmed By: Chris Adame MD
[2023-11-01 05:20] LABS: INR 1.37 (0.8-1.3)
--- NOTE | 2023-11-01 07:56 | EKG ---
Test Reason : chest pain Blood Pressure : */* mmHG Vent. Rate : 102 BPM Atrial Rate : 102 BPM P-R Int : 140 ms QRS Dur : 92 ms QT Int : 366 ms P-R-T Axes : 66 17 131 degrees QTc Int : 477 ms Sinus tachycardia Biatrial enlargement Left ventricular hypertrophy with repolarization abnormality ( Sokolow-Trimble ) Abnormal ECG When compared with ECG of 01-NOV-2023 04:48, (Unconfirmed) T wave inversion no longer evident in Inferior leads st segments have improved in lateral leads Confirmed by Chris Adame MD ([id number]) on 11/01/2023 8:30:52 AM Referred By: Confirmed By: Chris Adame MD
[2023-11-01] MEDS ORDERED: XOPENEX 1.25 MG/3 ML NEBULE NEB PRN (08:00)
[2023-11-01] MEDS: HYDROCHLOROTHIAZIDE 12.5 MG CAP PO SCH (08:07)
[2023-11-01] MEDS: ELIQUIS PO SCH ×2 (08:08→20:31)
[2023-11-01] MEDS: LANOXIN PO SCH (08:08)
[2023-11-01 08:24] VITALS: BMI 22.9
[2023-11-01] MEDS ORDERED: LIPITOR TAB 40 MG PO SCH (09:00)
[2023-11-01] MEDS ORDERED: ZEBETA TAB 5 MG PO SCH (09:00)
[2023-11-01] MEDS: ENTRESTO 24/26 MG TABLET PO SCH ×2 (09:15→20:31)
[2023-11-01] MEDS: LASIX IVP SCH ×2 (09:16→16:37)
--- NOTE | 2023-11-01 14:04 | DR.CONSULT ---
CONSULT Consultation for Day of: Date: 11/01/23 Chief Complaint Chief Complaint: sob Allergies Allergies Allergy/AdvReac Type Severity Reaction Status Date / Time No Known Drug Allergies Allergy Verified 11/01/23 07:39 History of Present Illness History of Present Illness: cath 2020: normal corns, ef <20%- put on std meds but ran out year ago- no cardiac f/u to see if aicd candidate- returns w chf- ef 20% still- no entresto or zebeta for year/more Past Medical History Past Medical History: CHF and Hypertension Past Surgical History Surgical History: Unknown Family History Family Medical History: Hypertension Social History Does patient currently use any type of tobacco product: Yes Have you used tobacco products in the last 12 months: Yes Type of Tobacco Use: Cigarettes Does any household member use tobacco: Yes Alcohol Use: None Drug Use: Methamphetamine Medications Home Medications: No Known Drug Allergies Allergy (Verified 11/01/23 07:39) CONTINUE taking the following medications apixaban 5 mg tablet (Eliquis) 5 mg PO BID 11/01/23 [History] atorvastatin 40 mg tablet (Lipitor) 40 mg PO QDAY 11/01/23 [History] bisoprolol fumarate 10 mg tablet 10 mg PO QDAY 11/01/23 [History] cholecalciferol (vitamin D3) 50 mcg (2,000 unit) capsule (Vitamin D3) 2,000 unit PO DAILY 11/01/23 [History] digoxin 250 mcg (0.25 mg) tablet 250 mcg PO QDAY 11/01/23 [History] hydrochlorothiazide 12.5 mg tablet 12.5 mg PO QAM 11/01/23 [History] sacubitril 97 mg-valsartan 103 mg tablet (Entresto) 1 tab PO BID 11/01/23 [History] Physical Exam Vital Signs: Vital Signs Temperature 97.2 F Pulse Rate 82 Pulse Rate 85 Pulse Rate 87 Pulse Rate 87 Pulse Rate 90 Pulse Rate 97 Pulse Rate 102 Pulse Rate 99 Pulse Rate 108 Pulse Rate 105 Pulse Rate 105 Respiratory Rate 17 Respiratory Rate 16 Respiratory Rate 18 Respiratory Rate 17 Respiratory Rate 17 Respiratory Rate 19 Respiratory Rate 18 Respiratory Rate 25 Respiratory Rate 23 Respiratory Rate 18 Blood Pressure 135/95 Blood Pressure 132/95 Blood Pressure 143/100 Blood Pressure 153/104 Blood Pressure 166/112 Blood Pressure 157/101 Blood Pressure 169/98 Blood Pressure 163/107 O2 Sat by Pulse Oximetry 100 O2 Sat by Pulse Oximetry 100 O2 Sat by Pulse Oximetry 100 O2 Sat by Pulse Oximetry 100 O2 Sat by Pulse Oximetry 100 O2 Sat by Pulse Oximetry 99 O2 Sat by Pulse Oximetry 100 O2 Sat by Pulse Oximetry 98 alert ox3 few crackle rrr soft hsm minimal edema echo: ef 20% mild mR labs: hct 37 , trops 114-96-88, bnp 2600, cr 1.34, cxr: cm/chf, ekg: st lvh Plan (1) CHF (congestive heart failure): Status: Acute Qualifiers: Heart failure chronicity: chronic Heart failure type: unspecified Qualified Code(s): I50.9 - Heart failure, unspecified Plan: diuresis- resume entresto /change zabeta to coreg- check tsh (2) Nonischemic cardiomyopathy: Status: Acute (3) Hypertension: Status: Acute
--- NOTE | 2023-11-01 18:08 | DR.H&P ---
H&P History & Physical for Day of: H&P Date: 11/01/23 Chief Complaint Chief Complaint: SOB, ABDOMINAL PAIN Allergies Allergies Allergy/AdvReac Type Severity Reaction Status Date / Time No Known Drug Allergies Allergy Verified 11/01/23 07:39 History of Present Illness History of Present Illness: PT IS 33 BM, ER ADMISSION WITH REPORTS OF SOB AND ABDOMINAL PAIN, WITHOUT FEVER OR FLU LIKE SYMPTOMS. 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 CXR REVEALED CHF EXACERBATION. PT ADMITTED FOR TREATMENT OF ACUTE ILLNESS. Past Medical History Past Medical History: CHF and Hypertension Past Surgical History Surgical History: Unknown Family History Family Medical History: Hypertension Social History Does patient currently use any type of tobacco product: Yes Have you used tobacco products in the last 12 months: Yes Type of Tobacco Use: Cigarettes Does any household member use tobacco: Yes Alcohol Use: None Drug Use: Methamphetamine Medications Home Medications: Home Medications Medication Instructions Recorded Confirmed Type apixaban 5 mg tablet (Eliquis) 5 mg PO BID 11/01/23 11/01/23 History atorvastatin 40 mg tablet (Lipitor) 40 mg PO QDAY 11/01/23 11/01/23 History bisoprolol fumarate 10 mg tablet 10 mg PO QDAY 11/01/23 11/01/23 History cholecalciferol (vitamin D3) 50 2,000 unit PO DAILY 11/01/23 11/01/23 History mcg (2,000 unit) capsule (Vitamin D3) digoxin 250 mcg (0.25 mg) tablet 250 mcg PO QDAY 11/01/23 11/01/23 History hydrochlorothiazide 12.5 mg tablet 12.5 mg PO QAM 11/01/23 11/01/23 History sacubitril 97 mg-valsartan 103 mg 1 tab PO BID 11/01/23 11/01/23 History tablet (Entresto) Labs 11/01/23 01:34 11/01/23 01:34 Labs: Laboratory WBC 11.0 X10^3/uL (3.6-10.0) H 11/01/23 01:34 RBC 4.07 X10^6/uL (4.7-6.0) L 11/01/23 01:34 Hgb 12.1 g/dL (13.5-18.0) L 11/01/23 01:34 Hct 37.0 % (42.0-54.0) L 11/01/23 01:34 MCV 91.0 fL (80.0-100.0) 11/01/23 01:34 MCH 29.6 pg (27.0-34.0) 11/01/23 01:34 MCHC 32.5 g/dL (33.0-35.0) L 11/01/23 01:34 RDW 16.0 % (11.6-16.5) 11/01/23 01:34 Plt Count 214 X10^3/uL (150.0-450.0) 11/01/23 01:34 MPV 7.7 fL (7.4-11.0) 11/01/23 01:34 Neut % (Auto) 61.7 % (42.0-75.0) 11/01/23 01:34 Lymph % (Auto) 28.1 % (21.0-51.0) 11/01/23 01:34 [place] % (Auto) 7.0 % (0.0-13.0) 11/01/23 01:34 Eos % (Auto) 2.8 % (0.9-2.9) 11/01/23 01:34 Baso % (Auto) 0.4 % (0.2-1.0) 11/01/23 01:34 Neut # (Auto) 6.8 x10^3/uL (2.2-4.8) H 11/01/23 01:34 Lymph # (Auto) 3.1 X10^3/uL (1.3-2.9) H 11/01/23 01:34 [place] # (Auto) 0.8 x10^3/uL (0.3-0.8) 11/01/23 01:34 Eos # (Auto) 0.3 x10^3/uL (0.0-0.2) H 11/01/23 01:34 Baso # (Auto) 0.0 X10^3/uL (0.0-0.1) 11/01/23 01:34 Absolute Nucleated RBC 0.1 /100WBC 11/01/23 01:34 PT 16.6 SECONDS (11.8-14.3) 11/01/23 01:34 INR Target Range - 01/18/24 01:34 INR 1.37 (0.8-1.3) H 11/01/23 01:34 APTT 32.9 SECONDS (22.9-36.5) 11/01/23 01:34 PTT Comment - 11/01/23 01:34 D-Dimer 0.79 ug/ml (0.0-0.57) H 11/01/23 01:34 Sodium 140 mmol/L (136-145) 11/01/23 01:34 Corrected Sodium TNP 11/01/23 01:34 Potassium 4.4 mmol/L (3.5-5.1) 11/01/23 01:34 Chloride 108 mmol/L (98-107) H 11/01/23 01:34 Carbon Dioxide 24.1 mmol/L (21-32) 11/01/23 01:34 BUN 22 mg/dL (7-18) H 11/01/23 01:34 Creatinine 1.34 mg/dL (0.70-1.30) H 11/01/23 01:34 Creatinine Cancelled 11/01/23 01:34 Est GFR (MDRD) Af Amer > 60 (>60) 11/01/23 01:34 Est GFR (MDRD) Non-Af > 60 (>60) 11/01/23 01:34 Glucose 92 mg/dL (65-99) 11/01/23 01:34 Calcium 8.2 mg/dL (8.5-10.1) L 11/01/23 01:34 Corrected Calcium 9.2 mg/dL (8.5-10.1) 11/01/23 01:34 Total Bilirubin 0.60 mg/dL (0.2-1.0) 11/01/23 01:34 AST 33 Units/L (15-37) 11/01/23 01:34 ALT 36 Units/L (12-78) 11/01/23 01:34 Alkaline Phosphatase 110 Units/L (46-116) 11/01/23 01:34 Creatine Kinase 130 Units/L (39-308) 11/01/23 08:03 Troponin I High Sens 74.1 ng/L (4.0-60.0) H* 11/01/23 13:40 B-Natriuretic Peptide 2670 pg/mL (0-79) H 11/01/23 01:34 Total Protein 6.5 g/dL (6.4-8.2) 11/01/23 01:34 Albumin 2.7 g/dL (3.4-5.0) L 11/01/23 01:34 Globulin 3.8 g/dL (2.5-4.5) 11/01/23 01:34 Albumin/Globulin Ratio 0.7 Ratio (1.1-2.1) L 11/01/23 01:34 Amylase 43 Units/L (25-115) 11/01/23 01:34 Lipase 35 Units/L (16-77) 11/01/23 01:34 TSH 3rd Generation 0.365 uIU/mL (0.358-3.74) 11/01/23 13:40 Specimen Type Clean catch urine 11/01/23 02:32 Urine Color Dark yellow (YELLOW) 11/01/23 02:32 Urine Appearance Clear (CLEAR) 11/01/23 02:32 Urine pH 6.0 (5.0 - 8.0) 11/01/23 02:32 Ur Specific [place] 1.025 (1.000-1.030) 11/01/23 02:32 Urine Protein 2+ (NEGATIVE) 11/01/23 02:32 Urine Glucose (UA) Negative (NEGATIVE) 11/01/23 02:32 Urine Ketones Negative (NEGATIVE) 11/01/23 02:32 Urine Blood Negative (NEGATIVE) 11/01/23 02:32 Urine Nitrite Negative (NEGATIVE) 11/01/23 02:32 Urine Bilirubin Negative (NEGATIVE) 11/01/23 02:32 Urine Urobilinogen 1+ (NORMAL) 11/01/23 02:32 Ur Leukocyte Esterase Negative (NEGATIVE) 11/01/23 02:32 Urine RBC None seen /HPF (0-3) 11/01/23 02:32 Urine WBC 0-2 /HPF (0-5) 11/01/23 02:32 Ur Squamous Epith Cells Rare /HPF (NEGATIVE) 11/01/23 02:32 Urine Bacteria Trace /HPF (NEGATIVE) 11/01/23 02:32 Urine Mucus Few /HPF (NEGATIVE) 11/01/23 02:32 Ur Culture Indicated? No/not indicated 11/01/23 02:32 Urine Opiates Screen Negative (NEG=<300) 11/01/23 02:32 Urine Methadone Screen Negative (NEG=<300) 11/01/23 02:32 Ur Barbiturates Screen Negative (NEG=<200) 11/01/23 02:32 Ur Phencyclidine Scrn Negative (NEG=<25) 11/01/23 02:32 Ur Amphetamines Screen Positive (NEG=<1000) 11/01/23 02:32 U Benzodiazepines Scrn Negative (NEG=<200) 11/01/23 02:32 Urine Cocaine Screen Negative (NEG=<300) 11/01/23 02:32 U Marijuana (THC) Screen Negative (NEG=<50) 11/01/23 02:32 SARS-CoV-2 (PCR) Negative (NEGATIVE) 11/01/23 01:16 Influenza Type A (PCR) Negative (NEGATIVE) 11/01/23 01:16 Influenza Type B (PCR) Negative (NEGATIVE) 11/01/23 01:16 RSV (PCR) Negative (NEGATIVE) 11/01/23 01:16 Review of Systems Constitutional: Malaise Eyes: No Symptoms Reported ENT: No Symptoms Reported Respiratory: SOB with Excertion Cardiovascular: Edema Gastrointestinal: Abdominal Pain Genitourinary: No Symptoms Reported Skin: No Symptoms Reported Neurological: No Symptoms Reported Physical Exam Vital Signs: Vital Signs Temperature 97.8 F Pulse Rate 79 Pulse Rate 79 Pulse Rate 81 Pulse Rate 77 Pulse Rate 79 Pulse Rate 87 Pulse Rate 82 Pulse Rate 85 Respiratory Rate 17 Respiratory Rate 17 Respiratory Rate 20 Respiratory Rate 19 Respiratory Rate 15 Respiratory Rate 25 Respiratory Rate 17 Respiratory Rate 16 Blood Pressure 124/85 Blood Pressure 124/85 Blood Pressure 123/82 Blood Pressure 123/85 Blood Pressure 129/95 Blood Pressure 135/95 Blood Pressure 132/95 O2 Sat by Pulse Oximetry 99 O2 Sat by Pulse Oximetry 99 O2 Sat by Pulse Oximetry 99 O2 Sat by Pulse Oximetry 100 O2 Sat by Pulse Oximetry 100 O2 Sat by Pulse Oximetry 100 O2 Sat by Pulse Oximetry 100 O2 Sat by Pulse Oximetry 100 Oriented: Normal Eyes: Normal Ear: Normal Nose: Normal Throat: Dry Respiratory: Diminished Throughout Cardiovascular: Edema (TRACE BILATERAL LE ) : Normal Auscultation: Bowel Sounds: Normal Palpation: Normal Tenderness: Other (NON TENDER ON ADMISSION ASSESSMENT) Skin: Normal Musculoskeletal: Normal Psychiatric: Normal Mood Description: Calm Affect: Flat Speech Pattern: Clear Assessment/Plan (1) CHF (congestive heart failure): Qualifiers: Heart failure chronicity: chronic Heart failure type: unspecified Qualified Code(s): I50.9 - Heart failure, unspecified Narrative Support Text: ADMIT, SERIAL CE AND EKG CXR ON ADMISSION, REPEAT AM CXR DAILY BNP IV LASIX, STRICT I&OS CARDIAC CONSULT CONTINUE HOME MEDICATIONS, ASA, BB, STATIN, ENTRESTO, LASIX AND DIGOXIN SUPPLEMENTAL O2 ECHO Status: Acute (2) Nonischemic cardiomyopathy: Status: Acute (3) Hypertension: Status: Acute
[2023-11-01] MEDS: COREG TAB 12.5 MG PO SCH (20:31)
[2023-11-01] MEDS: LIPITOR TAB 40 MG PO SCH (20:31)
[2023-11-02 05:31] LABS: BASOPHILS # (AUTO) 0.1 X10^3/uL (0.0-0.1); BASOPHILS % (AUTO) 0.5 % (0.2-1.0); EOSINOPHILS # (AUTO) 0.1 x10^3/uL (0.0-0.2); EOSINOPHILS % (AUTO) 0.5 % (0.9-2.9); HEMATOCRIT 46.4 % (42.0-54.0); LYMPHOCYTES # (AUTO) 3.9 X10^3/uL (1.3-2.9); LYMPHOCYTES % (AUTO) 20.6 % (21.0-51.0); MEAN CORPUSCULAR HEMOGLOBIN 29.9 pg (27.0-34.0); MEAN CORPUSCULAR VOLUME 90.7 fL (80.0-100.0); MONOCYTES # (AUTO) 1.5 x10^3/uL (0.3-0.8); MONOCYTES % (AUTO) 8.2 % (0.0-13.0); NEUTROPHILS # (AUTO) 13.2 x10^3/uL (2.2-4.8); NEUTROPHILS % (AUTO) 70.2 % (42.0-75.0); PLATELET COUNT 264 X10^3/uL (150.0-450.0); RED BLOOD COUNT 5.12 X10^6/uL (4.7-6.0); RED CELL DISTRIBUTION WIDTH 15.7 % (11.6-16.5); WHITE BLOOD COUNT 18.8 X10^3/uL (3.6-10.0)
[2023-11-02 05:36] LABS: HEMOGLOBIN 15.3 g/dL (13.5-18.0)
[2023-11-02 05:39] LABS: ALANINE AMINOTRANSFERASE 41 Units/L (12-78); ALBUMIN 2.6 g/dL (3.4-5.0); ALKALINE PHOSPHATASE 131 Units/L (46-116); ASPARTATE AMINO TRANSFERASE 27 Units/L (15-37); BLOOD UREA NITROGEN 31 mg/dL (7-18); CALCIUM 8.5 mg/dL (8.5-10.1); CARBON DIOXIDE 28.9 mmol/L (21-32); CHLORIDE 101 mmol/L (98-107); COR CA(FOR HYPOALB) 9.6 mg/dL (8.5-10.1); COR NA(FOR HYPERGLY) 139 mmol/L (136-145); CREATININE 1.38 mg/dL (0.70-1.30); GLUCOSE 116 mg/dL (65-99); POTASSIUM 3.9 mmol/L (3.5-5.1); SODIUM 139 mmol/L (136-145); TOTAL PROTEIN 6.9 g/dL (6.4-8.2); eGFR NON BLACK RACES > 60 (>60)
--- NOTE | 2023-11-02 05:41 | RAD ---
EXAM:CHEST, PA/LAT ADULTHISTORY:CHF;COMPARISON:11/01/2023 br.br.br.br mildly enlarged.. The lungs are clear without focal infiltrate or effusion. The bony thorax is unremarkable.IMPRESSION:Mild cardiomegalyNo active cardiopulmonary diseaseTHIS IS AN ELECTRONICALLY VERIFIED FINAL REPORT11/02/2023 5:37 AM - Electronically signed by Travis Benjamin MD
[2023-11-02] MEDS ORDERED: CONSULT PHARMACY - POTASSIUM & MAGNESIUM XX SCH (07:00)
[2023-11-02] MEDS: COLACE CAP 100 MG PO SCH (09:54)
[2023-11-02] MEDS: COREG TAB 12.5 MG PO SCH ×2 (09:54→20:33)
[2023-11-02] MEDS: ELIQUIS PO SCH ×2 (09:54→20:34)
[2023-11-02] MEDS: HYDROCHLOROTHIAZIDE 12.5 MG CAP PO SCH (09:54)
[2023-11-02] MEDS: ENTRESTO 24/26 MG TABLET PO SCH ×2 (09:54→20:34)
[2023-11-02] MEDS: LANOXIN PO SCH (09:55)
--- NOTE | 2023-11-02 09:58 | NOTE.SOAP ---
Soap Note Note for Day of Date of Exam: 11/02/23 Subjective Data Subjective Data: sleeping/wakes up/no c/o Objective Data Objective Data: bp 110/70 p70s- now on entresto/coreg/hctz/digoxin Assessment Assessment: cardiomyopathy/drug use/noncompliance/no cad by cath 2020 Plan Plan: cont bb/entreto/hctz/dig- stop meth!- echo in 100 days of good meds - aicd if < 35
[2023-11-02] MEDS: ROCEPHIN VIAL 1 GRAM 1 G in NS 100 ML IV 100 ML IV SCH (15:04)
[2023-11-02] MEDS: LIPITOR TAB 40 MG PO SCH (20:33)
[2023-11-03 05:34] LABS: MEAN CORPUSCULAR HGB CONC 32.7 g/dL (33.0-35.0); MEAN PLATELET VOLUME 7.9 fL (7.4-11.0)
[2023-11-03 05:36] LABS: BASOPHILS % (AUTO) 0.3 % (0.2-1.0); EOSINOPHILS # (AUTO) 0.3 x10^3/uL (0.0-0.2); EOSINOPHILS % (AUTO) 2.2 % (0.9-2.9); HEMATOCRIT 47.3 % (42.0-54.0); HEMOGLOBIN 15.5 g/dL (13.5-18.0); LYMPHOCYTES # (AUTO) 3.7 X10^3/uL (1.3-2.9); LYMPHOCYTES % (AUTO) 30.3 % (21.0-51.0); MEAN CORPUSCULAR VOLUME 91.7 fL (80.0-100.0); MONOCYTES # (AUTO) 1.2 x10^3/uL (0.3-0.8); NEUTROPHILS # (AUTO) 6.9 x10^3/uL (2.2-4.8); NEUTROPHILS % (AUTO) 57.2 % (42.0-75.0); PLATELET COUNT 259 X10^3/uL (150.0-450.0); RED BLOOD COUNT 5.15 X10^6/uL (4.7-6.0); RED CELL DISTRIBUTION WIDTH 15.8 % (11.6-16.5); WHITE BLOOD COUNT 12.1 X10^3/uL (3.6-10.0)
[2023-11-03 05:57] LABS: ALANINE AMINOTRANSFERASE 32 Units/L (12-78); ALBUMIN 2.5 g/dL (3.4-5.0); ALKALINE PHOSPHATASE 118 Units/L (46-116); ASPARTATE AMINO TRANSFERASE 18 Units/L (15-37); BLOOD UREA NITROGEN 29 mg/dL (7-18); CALCIUM 8.1 mg/dL (8.5-10.1); CARBON DIOXIDE 24.8 mmol/L (21-32); CHLORIDE 103 mmol/L (98-107); COR CA(FOR HYPOALB) 9.3 mg/dL (8.5-10.1); CREATININE 1.24 mg/dL (0.70-1.30); GLUCOSE 96 mg/dL (65-99); POTASSIUM 3.7 mmol/L (3.5-5.1); SODIUM 136 mmol/L (136-145); TOTAL PROTEIN 6.6 g/dL (6.4-8.2); eGFR NON BLACK RACES > 60 (>60)
--- NOTE | 2023-11-03 08:03 | RAD ---
EXAM:CHEST, 1 VIEWHISTORY:CHF;COMPARISON:Chest radiographs dated November 02, 2023FINDINGS:The trachea is midline. The cardiac silhouette is mildly enlarged.Central peribronchial wall thickening is seen which would imply central bronchitis.The remaining lungs are clear without focal infiltrate or effusion. No pneumothorax is identified.There is no evidence for CHF or pulmonary edema.The bony thorax is unremarkable.IMPRESSION:Chest findings suggesting central bronchitis/small airways disease without evidence for lobar infiltrates or effusions.THIS IS AN ELECTRONICALLY VERIFIED FINAL REPORT11/03/2023 7:59 AM - Electronically signed by Edwin Alcazar
[2023-11-03] MEDS: ROCEPHIN VIAL 1 GRAM 1 G in NS 100 ML IV 100 ML IV SCH (09:18)
[2023-11-03] MEDS: ELIQUIS PO SCH ×2 (09:18→20:28)
[2023-11-03] MEDS: COREG TAB 12.5 MG PO SCH ×2 (09:18→20:27)
[2023-11-03] MEDS: HYDROCHLOROTHIAZIDE 12.5 MG CAP PO SCH (09:18)
[2023-11-03] MEDS: COLACE CAP 100 MG PO SCH (09:18)
[2023-11-03] MEDS: LANOXIN PO SCH (09:18)
[2023-11-03] MEDS: ENTRESTO 24/26 MG TABLET PO SCH ×2 (09:18→20:27)
--- NOTE | 2023-11-03 11:18 | PCM.PROG ---
Progress Note Progress Note for Day of Date of Exam: 11/03/23 Subjective Subjective: Patient is a 33-year-old male admitted for CHF exacerbation and methamphetamine abuse. This morning patient is resting comfortably in bed. He reports some improvement in his symptoms and swelling. No acute events overnight. Labs: WBC 12.1, hemoglobin 15.5, platelets 259, sodium 136, pota ssium 3.7, creatinine 1.24, glucose 96, BNP 858. Medications have been resumed and adjusted by cardiology. Will continue with current treatment plan. Continue closely monitor and follow-up labs in the morning. Past Medical Family Social History Allergies: Allergies No Known Drug Allergies Allergy (Verified 11/01/23 07:39) Review of Systems ROS changes noted: see HPI Vital Signs and I&O's Vital Signs: Vital Signs Temperature 98.0 F Pulse Rate 83 Pulse Rate 80 Pulse Rate 85 Pulse Rate 86 Pulse Rate 82 Pulse Rate 81 Pulse Rate 82 Pulse Rate 80 Pulse Rate 79 Pulse Rate 80 Pulse Rate 83 Pulse Rate 90 Respiratory Rate 14 Respiratory Rate 21 Respiratory Rate 19 Respiratory Rate 18 Respiratory Rate 16 Respiratory Rate 16 Respiratory Rate 18 Respiratory Rate 14 Respiratory Rate 14 Respiratory Rate 16 Respiratory Rate 16 Blood Pressure 112/74 Blood Pressure 139/96 Blood Pressure 117/67 Blood Pressure 142/74 Blood Pressure 102/73 Blood Pressure 130/93 Blood Pressure 125/83 Blood Pressure 114/67 O2 Sat by Pulse Oximetry 99 O2 Sat by Pulse Oximetry 99 O2 Sat by Pulse Oximetry 99 O2 Sat by Pulse Oximetry 98 O2 Sat by Pulse Oximetry 99 O2 Sat by Pulse Oximetry 100 O2 Sat by Pulse Oximetry 99 O2 Sat by Pulse Oximetry 97 O2 Sat by Pulse Oximetry 99 O2 Sat by Pulse Oximetry 96 O2 Sat by Pulse Oximetry 98 Intake and Output: Intake & Output 10/31/23 11/01/23 11/02/23 11/03/23 23:59 23:59 23:59 23:59 Intake Total 1500 / 1500 960 / 960 220 / 220 Output Total 6975 / 6975 1425 / 1425 400 / 400 Balance -5475 / -5475 -465 / -465 -180 / -180 Physical Exam Oriented: Normal Eyes: Normal Ear: Normal Nose: Normal Throat: Normal Respiratory: Normal Cardiovascular: Edema (TRACE BILATERAL LE ) : Normal Auscultation: Bowel Sounds: Normal Tenderness: Other (NON TENDER ON ADMISSION ASSESSMENT) Skin: Normal Musculoskeletal: Normal Psychiatric: Normal Mood Description: Calm Affect: Flat Speech Pattern: Clear and Appropriate Laboratory and Diagnostics 11/03/23 04:20 11/03/23 04:20 Labs: 11/01/23 01:40 Blood Blood Culture - Preliminary 11/01/23 01:34 Blood Blood Culture - Preliminary Laboratory WBC 12.1 X10^3/uL (3.6-10.0) H 11/03/23 04:20 RBC 5.15 X10^6/uL (4.7-6.0) 11/03/23 04:20 Hgb 15.5 g/dL (13.5-18.0) 11/03/23 04:20 Hct 47.3 % (42.0-54.0) 11/03/23 04:20 MCV 91.7 fL (80.0-100.0) 11/03/23 04:20 MCH 30.0 pg (27.0-34.0) 11/03/23 04:20 MCHC 32.7 g/dL (33.0-35.0) L 11/03/23 04:20 RDW 15.8 % (11.6-16.5) 11/03/23 04:20 Plt Count 259 X10^3/uL (150.0-450.0) 11/03/23 04:20 MPV 7.9 fL (7.4-11.0) 11/03/23 04:20 Neut % (Auto) 57.2 % (42.0-75.0) 11/03/23 04:20 Lymph % (Auto) 30.3 % (21.0-51.0) 11/03/23 04:20 [place] % (Auto) 10.0 % (0.0-13.0) 11/03/23 04:20 Eos % (Auto) 2.2 % (0.9-2.9) 11/03/23 04:20 Baso % (Auto) 0.3 % (0.2-1.0) 11/03/23 04:20 Neut # (Auto) 6.9 x10^3/uL (2.2-4.8) H 11/03/23 04:20 Lymph # (Auto) 3.7 X10^3/uL (1.3-2.9) H 11/03/23 04:20 [place] # (Auto) 1.2 x10^3/uL (0.3-0.8) H 11/03/23 04:20 Eos # (Auto) 0.3 x10^3/uL (0.0-0.2) H 11/03/23 04:20 Baso # (Auto) 0.0 X10^3/uL (0.0-0.1) 11/03/23 04:20 Absolute Nucleated RBC 0.1 /100WBC 11/03/23 04:20 PT 16.6 SECONDS (11.8-14.3) 11/01/23 01:34 INR Target Range - 11/01/23 01:34 INR 1.37 (0.8-1.3) H 11/01/23 01:34 APTT 32.9 SECONDS (22.9-36.5) 11/01/23 01:34 PTT Comment - 11/01/23 01:34 D-Dimer 0.79 ug/ml (0.0-0.57) H 11/01/23 01:34 Sodium 136 mmol/L (136-145) 11/03/23 04:20 Corrected Sodium TNP 11/03/23 04:20 Potassium 3.7 mmol/L (3.5-5.1) 11/03/23 04:20 Chloride 103 mmol/L (98-107) 11/03/23 04:20 Carbon Dioxide 24.8 mmol/L (21-32) 11/03/23 04:20 BUN 29 mg/dL (7-18) H 11/03/23 04:20 Creatinine 1.24 mg/dL (0.70-1.30) 11/03/23 04:20 Est GFR (MDRD) Af Amer > 60 (>60) 11/03/23 04:20 Est GFR (MDRD) Non-Af > 60 (>60) 11/03/23 04:20 Glucose 96 mg/dL (65-99) 11/03/23 04:20 Calcium 8.1 mg/dL (8.5-10.1) L 11/03/23 04:20 Corrected Calcium 9.3 mg/dL (8.5-10.1) 11/03/23 04:20 Magnesium 2.0 mg/dL (2.0-2.9) 11/02/23 04:30 Total Bilirubin 0.30 mg/dL (0.2-1.0) 11/03/23 04:20 AST 18 Units/L (15-37) 11/03/23 04:20 ALT 32 Units/L (12-78) 11/03/23 04:20 Alkaline Phosphatase 118 Units/L (46-116) H 11/03/23 04:20 Creatine Kinase 130 Units/L (39-308) 11/01/23 08:03 Troponin I High Sens 72.2 ng/L (4.0-60.0) H* 11/02/23 08:48 B-Natriuretic Peptide 858 pg/mL (0-79) H 11/03/23 04:20 Total Protein 6.6 g/dL (6.4-8.2) 11/03/23 04:20 Albumin 2.5 g/dL (3.4-5.0) L 11/03/23 04:20 Globulin 4.1 g/dL (2.5-4.5) 11/03/23 04:20 Albumin/Globulin Ratio 0.6 Ratio (1.1-2.1) L 11/03/23 04:20 Amylase 43 Units/L (25-115) 11/01/23 01:34 Lipase 35 Units/L (16-77) 11/01/23 01:34 TSH 3rd Generation 0.365 uIU/mL (0.358-3.74) 11/01/23 13:40 Specimen Type Clean catch urine 11/01/23 02:32 Urine Color Dark yellow (YELLOW) 11/01/23 02:32 Urine Appearance Clear (CLEAR) 11/01/23 02:32 Urine pH 6.0 (5.0 - 8.0) 11/01/23 02:32 Ur Specific [place] 1.025 (1.000-1.030) 11/01/23 02:32 Urine Protein 2+ (NEGATIVE) 11/01/23 02:32 Urine Glucose (UA) Negative (NEGATIVE) 11/01/23 02:32 Urine Ketones Negative (NEGATIVE) 11/01/23 02:32 Urine Blood Negative (NEGATIVE) 11/01/23 02:32 Urine Nitrite Negative (NEGATIVE) 11/01/23 02:32 Urine Bilirubin Negative (NEGATIVE) 11/01/23 02:32 Urine Urobilinogen 1+ (NORMAL) 11/01/23 02:32 Ur Leukocyte Esterase Negative (NEGATIVE) 11/01/23 02:32 Urine RBC None seen /HPF (0-3) 11/01/23 02:32 Urine WBC 0-2 /HPF (0-5) 11/01/23 02:32 Ur Squamous Epith Cells Rare /HPF (NEGATIVE) 11/01/23 02:32 Urine Bacteria Trace /HPF (NEGATIVE) 11/01/23 02:32 Urine Mucus Few /HPF (NEGATIVE) 11/01/23 02:32 Ur Culture Indicated? No/not indicated 11/01/23 02:32 Digoxin < 0.30 ng/mL (0.9-2) L 11/02/23 08:22 Urine Opiates Screen Negative (NEG=<300) 11/01/23 02:32 Urine Methadone Screen Negative (NEG=<300) 11/01/23 02:32 Ur Barbiturates Screen Negative (NEG=<200) 11/01/23 02:32 Ur Phencyclidine Scrn Negative (NEG=<25) 11/01/23 02:32 Ur Amphetamines Screen Positive (NEG=<1000) 11/01/23 02:32 U Benzodiazepines Scrn Negative (NEG=<200) 11/01/23 02:32 Urine Cocaine Screen Negative (NEG=<300) 11/01/23 02:32 U Marijuana (THC) Screen Negative (NEG=<50) 11/01/23 02:32 SARS-CoV-2 (PCR) Negative (NEGATIVE) 11/01/23 01:16 Influenza Type A (PCR) Negative (NEGATIVE) 11/01/23 01:16 Influenza Type B (PCR) Negative (NEGATIVE) 11/01/23 01:16 RSV (PCR) Negative (NEGATIVE) 11/01/23 01:16 Plan (1) CHF (congestive heart failure): Status: Acute Qualifiers: Heart failure chronicity: chronic Heart failure type: unspecified Qualified Code(s): I50.9 - Heart failure, unspecified (2) Nonischemic cardiomyopathy: Status: Acute (3) Hypertension: Status: Acute
[2023-11-03] MEDS: LIPITOR TAB 40 MG PO SCH (20:28)
[2023-11-04 05:18] LABS: BASOPHILS # (AUTO) 0.1 X10^3/uL (0.0-0.1); BASOPHILS % (AUTO) 0.6 % (0.2-1.0); EOSINOPHILS # (AUTO) 0.3 x10^3/uL (0.0-0.2); HEMATOCRIT 45.5 % (42.0-54.0); HEMOGLOBIN 14.9 g/dL (13.5-18.0); LYMPHOCYTES % (AUTO) 28.1 % (21.0-51.0); MEAN CORPUSCULAR HEMOGLOBIN 29.9 pg (27.0-34.0); MEAN CORPUSCULAR HGB CONC 32.7 g/dL (33.0-35.0); MEAN CORPUSCULAR VOLUME 91.5 fL (80.0-100.0); MEAN PLATELET VOLUME 7.7 fL (7.4-11.0); MONOCYTES # (AUTO) 1.1 x10^3/uL (0.3-0.8); MONOCYTES % (AUTO) 10.6 % (0.0-13.0); NEUTROPHILS # (AUTO) 6.2 x10^3/uL (2.2-4.8); NEUTROPHILS % (AUTO) 57.7 % (42.0-75.0); PLATELET COUNT 240 X10^3/uL (150.0-450.0); RED BLOOD COUNT 4.96 X10^6/uL (4.7-6.0); RED CELL DISTRIBUTION WIDTH 16.3 % (11.6-16.5); WHITE BLOOD COUNT 10.8 X10^3/uL (3.6-10.0)
[2023-11-04 05:33] LABS: ALANINE AMINOTRANSFERASE 29 Units/L (12-78); ALBUMIN 2.6 g/dL (3.4-5.0); ALKALINE PHOSPHATASE 118 Units/L (46-116); ASPARTATE AMINO TRANSFERASE 18 Units/L (15-37); BLOOD UREA NITROGEN 24 mg/dL (7-18); CALCIUM 8.1 mg/dL (8.5-10.1); CARBON DIOXIDE 26.8 mmol/L (21-32); CHLORIDE 105 mmol/L (98-107); COR CA(FOR HYPOALB) 9.2 mg/dL (8.5-10.1); CREATININE 1.09 mg/dL (0.70-1.30); GLUCOSE 92 mg/dL (65-99); POTASSIUM 3.7 mmol/L (3.5-5.1); SODIUM 139 mmol/L (136-145); TOTAL PROTEIN 6.4 g/dL (6.4-8.2); eGFR NON BLACK RACES > 60 (>60)
[2023-11-04] MEDS ORDERED: CONSULT PHARMACY - POTASSIUM & MAGNESIUM XX SCH (07:00)
[2023-11-04 08:42] VITALS: BP 112/75; PULSE 90; RESP 14; TEMP 97.7; O2SAT 98
[2023-11-04] MEDS ORDERED: K-DUR TAB 20 MEQ PO SCH (09:00)
[2023-11-04] MEDS: HYDROCHLOROTHIAZIDE 12.5 MG CAP PO SCH (10:00)
[2023-11-04] MEDS: ELIQUIS PO SCH (10:00)
[2023-11-04] MEDS: ENTRESTO 24/26 MG TABLET PO SCH (10:00)
[2023-11-04] MEDS: COLACE CAP 100 MG PO SCH (10:00)
[2023-11-04] MEDS: MAG-OX TAB PO SCH ×2 (10:00→10:30)
[2023-11-04] MEDS: LANOXIN PO SCH (10:14)
[2023-11-04] MEDS: COREG TAB 12.5 MG PO SCH (10:25)
[2023-11-04] MEDS: ROCEPHIN VIAL 1 GRAM 1 G in NS 100 ML IV 100 ML IV SCH (10:53)
--- NOTE | 2023-11-05 08:59 | W.DIS.FURT ---
Summary of Discharge Discharge Summary of Date Date of Exam: 11/04/23 Admission Date Date of Admission: 11/01/23 Admission Diagnosis Patient Problems (Updated 11/01/23 @ 14:03 by NAVARRO CAMP) Acute exacerbation of CHF (congestive heart failure) (Acute) I50.9 Hospital Course: Patient is a 33-year-old male admitted for CHF exacerbation and methamphetamine abuse. His hospital/treatment course included cardiology consult-Dr Camp, that adjusted his medications. Patient responded well to treatments. His symptoms significantly improved. Patient was discharged in stable condition. Rx all of his medications. Instructed to stop methamphetamine use. Patient instructed follow-up with PCP and cardiology in 1 week. Vital Signs: Vital Signs (72 hours) 11/01/23 11:00 11/01/23 11:00 11/01/23 12:00 Temperature Pulse Rate 85 82 Respiratory Rate 16 17 Blood Pressure 132/95 O2 Sat by Pulse Oximetry 100 100 Oxygen Delivery Method Oxygen Flow Rate FIO2% 11/01/23 12:00 11/01/23 13:00 11/01/23 14:00 Temperature Pulse Rate 87 79 Respiratory Rate 25 H 15 Blood Pressure 135/95 O2 Sat by Pulse Oximetry 100 100 Oxygen Delivery Method Oxygen Flow Rate FIO2% 11/01/23 14:00 11/01/23 15:00 11/01/23 15:00 Temperature 97.8 F Pulse Rate 77 Respiratory Rate 19 Blood Pressure 129/95 123/85 O2 Sat by Pulse Oximetry 100 Oxygen Delivery Method Oxygen Flow Rate FIO2% 11/01/23 16:00 11/01/23 16:00 11/01/23 17:00 Temperature Pulse Rate 81 79 Respiratory Rate 20 17 Blood Pressure 123/82 O2 Sat by Pulse Oximetry 99 99 Oxygen Delivery Method Oxygen Flow Rate FIO2% 11/01/23 17:00 11/01/23 17:00 11/01/23 17:00 Temperature Pulse Rate 79 Respiratory Rate 17 Blood Pressure 124/85 124/85 O2 Sat by Pulse Oximetry 99 Oxygen Delivery Method Oxygen Flow Rate FIO2% 11/01/23 17:00 11/01/23 18:00 11/01/23 18:00 Temperature Pulse Rate Respiratory Rate Blood Pressure 124/85 122/84 122/84 O2 Sat by Pulse Oximetry Oxygen Delivery Method Oxygen Flow Rate FIO2% 11/01/23 18:00 11/01/23 19:00 11/01/23 19:00 Temperature Pulse Rate 80 81 Respiratory Rate 19 16 Blood Pressure 125/88 O2 Sat by Pulse Oximetry 100 100 Oxygen Delivery Method Oxygen Flow Rate FIO2% 11/01/23 19:00 11/01/23 20:00 11/01/23 20:01 Temperature 97.8 F Pulse Rate 83 Respiratory Rate Blood Pressure 114/79 O2 Sat by Pulse Oximetry 97 Oxygen Delivery Method Nasal Cannula Oxygen Flow Rate 2 FIO2% 11/01/23 21:00 11/01/23 21:00 11/01/23 22:00 Temperature Pulse Rate 85 80 Respiratory Rate 20 18 Blood Pressure 116/68 O2 Sat by Pulse Oximetry 98 99 Oxygen Delivery Method Oxygen Flow Rate FIO2% 11/01/23 22:00 11/01/23 23:00 11/01/23 23:00 Temperature Pulse Rate 80 Respiratory Rate 17 Blood Pressure 118/75 114/71 O2 Sat by Pulse Oximetry 98 Oxygen Delivery Method Oxygen Flow Rate FIO2% 11/02/23 00:00 11/02/23 00:00 11/02/23 01:00 Temperature Pulse Rate 78 76 Respiratory Rate 16 14 Blood Pressure 117/77 O2 Sat by Pulse Oximetry 99 97 Oxygen Delivery Method Oxygen Flow Rate FIO2% 11/02/23 01:00 11/01/23 21:10 11/01/23 21:10 Temperature Pulse Rate 82 Respiratory Rate Blood Pressure 117/70 O2 Sat by Pulse Oximetry Oxygen Delivery Method Nasal Cannula Oxygen Flow Rate 2 FIO2% 28 11/02/23 02:00 11/02/23 02:00 11/02/23 03:00 Temperature Pulse Rate 75 72 Respiratory Rate 14 14 Blood Pressure 115/68 O2 Sat by Pulse Oximetry 99 98 Oxygen Delivery Method Oxygen Flow Rate FIO2% 11/02/23 03:00 11/02/23 04:00 11/02/23 04:00 Temperature 98.2 F Pulse Rate 82 Respiratory Rate 18 Blood Pressure 119/72 131/95 O2 Sat by Pulse Oximetry 100 Oxygen Delivery Method Oxygen Flow Rate FIO2% 11/02/23 05:01 11/02/23 05:01 11/02/23 06:00 Temperature 98.2 F Pulse Rate 71 82 Respiratory Rate 15 24 Blood Pressure 101/67 O2 Sat by Pulse Oximetry 99 100 Oxygen Delivery Method Oxygen Flow Rate FIO2% 11/02/23 06:01 11/02/23 07:00 11/02/23 07:00 Temperature Pulse Rate 76 Respiratory Rate 15 Blood Pressure 122/82 118/92 O2 Sat by Pulse Oximetry 100 Oxygen Delivery Method Oxygen Flow Rate FIO2% 11/02/23 08:00 11/02/23 08:00 11/02/23 09:55 Temperature 97.3 F L Pulse Rate 74 80 Respiratory Rate 14 Blood Pressure 113/84 O2 Sat by Pulse Oximetry 98 Oxygen Delivery Method Oxygen Flow Rate FIO2% 11/02/23 07:00 11/02/23 09:00 11/02/23 09:00 Temperature Pulse Rate 81 Respiratory Rate 16 Blood Pressure 116/78 O2 Sat by Pulse Oximetry 100 Oxygen Delivery Method Nasal Cannula Oxygen Flow Rate 2 FIO2% 11/02/23 10:00 11/02/23 10:00 11/02/23 11:00 Temperature Pulse Rate 81 77 Respiratory Rate 15 18 Blood Pressure 118/91 O2 Sat by Pulse Oximetry 93 L 98 Oxygen Delivery Method Oxygen Flow Rate FIO2% 11/02/23 11:00 11/02/23 12:00 11/02/23 12:00 Temperature 97.7 F Pulse Rate 82 Respiratory Rate 16 Blood Pressure 170/74 152/74 O2 Sat by Pulse Oximetry 98 Oxygen Delivery Method Oxygen Flow Rate FIO2% 11/02/23 08:05 11/02/23 13:00 11/02/23 13:01 Temperature Pulse Rate 86 Respiratory Rate 30 H Blood Pressure 143/66 O2 Sat by Pulse Oximetry 93 L Oxygen Delivery Method Nasal Cannula Oxygen Flow Rate 2 FIO2% 28 11/02/23 13:01 11/02/23 14:00 11/02/23 14:01 Temperature Pulse Rate 83 82 86 Respiratory Rate 15 17 27 H Blood Pressure O2 Sat by Pulse Oximetry 100 86 L 93 L Oxygen Delivery Method Oxygen Flow Rate FIO2% 11/02/23 14:01 11/02/23 15:00 11/02/23 15:00 Temperature Pulse Rate 87 Respiratory Rate 16 Blood Pressure 126/66 137/82 O2 Sat by Pulse Oximetry 98 Oxygen Delivery Method Oxygen Flow Rate FIO2% 11/02/23 16:00 11/02/23 16:00 11/02/23 17:00 Temperature 97.9 F Pulse Rate 88 Respiratory Rate 11 L Blood Pressure 143/82 131/92 O2 Sat by Pulse Oximetry 99 Oxygen Delivery Method Oxygen Flow Rate FIO2% 11/02/23 17:00 11/02/23 18:00 11/02/23 18:00 Temperature Pulse Rate 89 82 Respiratory Rate 19 16 Blood Pressure 125/81 O2 Sat by Pulse Oximetry 98 98 Oxygen Delivery Method Oxygen Flow Rate FIO2% 11/02/23 19:00 11/02/23 20:12 11/02/23 20:00 Temperature 98.0 F Pulse Rate 81 85 Respiratory Rate 17 16 Blood Pressure 115/74 138/73 O2 Sat by Pulse Oximetry 99 97 Oxygen Delivery Method Room Air Nasal Cannula Room Air Oxygen Flow Rate 2 FIO2% 28 11/02/23 19:00 11/02/23 21:00 11/02/23 22:00 Temperature Pulse Rate 84 84 Respiratory Rate 15 20 Blood Pressure 131/86 120/77 O2 Sat by Pulse Oximetry 99 99 Oxygen Delivery Method Nasal Cannula Room Air Room Air Oxygen Flow Rate 2 FIO2% 11/02/23 23:00 11/03/23 00:00 11/03/23 01:00 Temperature 97.8 F Pulse Rate 75 81 86 Respiratory Rate 20 20 16 Blood Pressure 126/73 125/70 128/90 O2 Sat by Pulse Oximetry 98 98 99 Oxygen Delivery Method Room Air Room Air Room Air Oxygen Flow Rate FIO2% 11/03/23 02:00 11/03/23 03:00 11/03/23 04:00 Temperature Pulse Rate 82 81 90 Respiratory Rate 18 18 16 Blood Pressure 137/90 121/76 114/67 O2 Sat by Pulse Oximetry 98 98 98 Oxygen Delivery Method Room Air Room Air Room Air Oxygen Flow Rate FIO2% 11/03/23 05:00 11/03/23 06:00 11/03/23 07:00 Temperature 98.0 F Pulse Rate 83 80 Respiratory Rate 16 14 Blood Pressure 125/83 130/93 O2 Sat by Pulse Oximetry 96 99 Oxygen Delivery Method Room Air Room Air Nasal Cannula Oxygen Flow Rate 2 FIO2% 11/03/23 07:00 11/03/23 07:00 11/03/23 08:00 Temperature Pulse Rate 79 80 Respiratory Rate 14 18 Blood Pressure 102/73 O2 Sat by Pulse Oximetry 97 99 Oxygen Delivery Method Oxygen Flow Rate FIO2% 11/03/23 08:01 11/03/23 08:01 11/03/23 09:00 Temperature 97.9 F Pulse Rate 82 81 Respiratory Rate 16 16 Blood Pressure 142/74 O2 Sat by Pulse Oximetry 100 99 Oxygen Delivery Method Oxygen Flow Rate FIO2% 11/03/23 09:18 11/03/23 09:25 11/03/23 09:25 Temperature Pulse Rate 82 86 Respiratory Rate 18 Blood Pressure 117/67 O2 Sat by Pulse Oximetry 98 Oxygen Delivery Method Oxygen Flow Rate FIO2% 11/03/23 10:00 11/03/23 10:01 11/03/23 10:01 Temperature Pulse Rate 85 80 Respiratory Rate 19 21 Blood Pressure 139/96 O2 Sat by Pulse Oximetry 99 99 Oxygen Delivery Method Oxygen Flow Rate FIO2% 11/03/23 11:00 11/03/23 11:00 11/03/23 12:00 Temperature 97.3 F L Pulse Rate 83 91 H Respiratory Rate 14 17 Blood Pressure 112/74 O2 Sat by Pulse Oximetry 99 91 L Oxygen Delivery Method Oxygen Flow Rate FIO2% 11/03/23 12:00 11/03/23 13:00 11/03/23 14:00 Temperature Pulse Rate 88 81 Respiratory Rate 28 H 13 Blood Pressure 116/86 O2 Sat by Pulse Oximetry 100 99 Oxygen Delivery Method Oxygen Flow Rate FIO2% 11/03/23 15:00 11/03/23 15:03 11/03/23 15:03 Temperature Pulse Rate 85 87 Respiratory Rate 16 16 Blood Pressure 103/62 O2 Sat by Pulse Oximetry 97 97 Oxygen Delivery Method Oxygen Flow Rate FIO2% 11/03/23 16:00 11/03/23 16:01 11/03/23 16:01 Temperature 97.7 F Pulse Rate 89 87 Respiratory Rate 22 18 Blood Pressure 106/67 O2 Sat by Pulse Oximetry 99 100 Oxygen Delivery Method Oxygen Flow Rate FIO2% 11/03/23 17:00 11/03/23 17:01 11/03/23 17:01 Temperature Pulse Rate 97 H 94 H Respiratory Rate 32 H 21 Blood Pressure 159/73 O2 Sat by Pulse Oximetry 97 95 Oxygen Delivery Method Oxygen Flow Rate FIO2% 11/03/23 18:00 11/03/23 19:00 11/03/23 20:00 Temperature 97.9 F Pulse Rate 84 93 H 87 Respiratory Rate 16 16 13 Blood Pressure 109/68 108/65 O2 Sat by Pulse Oximetry 96 98 100 Oxygen Delivery Method Oxygen Flow Rate FIO2% 11/03/23 19:00 11/03/23 20:15 11/03/23 20:15 Temperature Pulse Rate 87 Respiratory Rate Blood Pressure O2 Sat by Pulse Oximetry 99 Oxygen Delivery Method Nasal Cannula Nasal Cannula Oxygen Flow Rate 2 2 FIO2% 28 11/03/23 21:00 11/03/23 21:14 11/03/23 22:00 Temperature Pulse Rate 87 87 85 Respiratory Rate 18 18 Blood Pressure 123/83 136/77 O2 Sat by Pulse Oximetry 96 98 99 Oxygen Delivery Method Room Air Room Air Oxygen Flow Rate FIO2% 11/03/23 23:00 11/04/23 00:04 11/04/23 00:00 Temperature Pulse Rate 82 82 Respiratory Rate 19 16 Blood Pressure 112/58 97/52 O2 Sat by Pulse Oximetry 99 99 Oxygen Delivery Method Room Air Nasal Cannula Room Air Oxygen Flow Rate 2 FIO2% 28 11/04/23 01:00 11/04/23 02:00 11/04/23 03:00 Temperature Pulse Rate 83 82 86 Respiratory Rate 18 18 20 Blood Pressure O2 Sat by Pulse Oximetry 96 97 96 Oxygen Delivery Method Room Air Room Air Oxygen Flow Rate FIO2% 11/04/23 04:00 11/04/23 05:00 11/04/23 08:00 Temperature 97.8 F 97.7 F Pulse Rate 80 78 90 Respiratory Rate 14 13 14 Blood Pressure 108/61 108/61 112/75 O2 Sat by Pulse Oximetry 96 97 98 Oxygen Delivery Method Room Air Room Air Room Air Oxygen Flow Rate FIO2% Labs: Laboratory Last Values WBC 10.8 X10^3/uL (3.6-10.0) H 11/04/23 04:20 RBC 4.96 X10^6/uL (4.7-6.0) 11/04/23 04:20 Hgb 14.9 g/dL (13.5-18.0) 11/04/23 04:20 Hct 45.5 % (42.0-54.0) 11/04/23 04:20 MCV 91.5 fL (80.0-100.0) 11/04/23 04:20 MCH 29.9 pg (27.0-34.0) 11/04/23 04:20 MCHC 32.7 g/dL (33.0-35.0) L 11/04/23 04:20 RDW 16.3 % (11.6-16.5) 11/04/23 04:20 Plt Count 240 X10^3/uL (150.0-450.0) 11/04/23 04:20 MPV 7.7 fL (7.4-11.0) 11/04/23 04:20 Neut % (Auto) 57.7 % (42.0-75.0) 11/04/23 04:20 Lymph % (Auto) 28.1 % (21.0-51.0) 11/04/23 04:20 [place] % (Auto) 10.6 % (0.0-13.0) 11/04/23 04:20 Eos % (Auto) 3.0 % (0.9-2.9) H 11/04/23 04:20 Baso % (Auto) 0.6 % (0.2-1.0) 11/04/23 04:20 Neut # (Auto) 6.2 x10^3/uL (2.2-4.8) H 11/04/23 04:20 Lymph # (Auto) 3.0 X10^3/uL (1.3-2.9) H 11/04/23 04:20 [place] # (Auto) 1.1 x10^3/uL (0.3-0.8) H 11/04/23 04:20 Eos # (Auto) 0.3 x10^3/uL (0.0-0.2) H 11/04/23 04:20 Baso # (Auto) 0.1 X10^3/uL (0.0-0.1) 11/04/23 04:20 Absolute Nucleated RBC 0.0 /100WBC 11/04/23 04:20 PT 16.6 SECONDS (11.8-14.3) 11/01/23 01:34 INR Target Range - 11/01/23 01:34 INR 1.37 (0.8-1.3) H 11/01/23 01:34 APTT 32.9 SECONDS (22.9-36.5) 11/01/23 01:34 PTT Comment - 11/01/23 01:34 D-Dimer 0.79 ug/ml (0.0-0.57) H 11/01/23 01:34 Sodium 139 mmol/L (136-145) 11/04/23 04:20 Corrected Sodium TNP 11/04/23 04:20 Potassium 3.7 mmol/L (3.5-5.1) 11/04/23 04:20 Chloride 105 mmol/L (98-107) 11/04/23 04:20 Carbon Dioxide 26.8 mmol/L (21-32) 11/04/23 04:20 BUN 24 mg/dL (7-18) H 11/04/23 04:20 Creatinine 1.09 mg/dL (0.70-1.30) 11/04/23 04:20 Est GFR (MDRD) Af Amer > 60 (>60) 11/04/23 04:20 Est GFR (MDRD) Non-Af > 60 (>60) 11/04/23 04:20 Glucose 92 mg/dL (65-99) 11/04/23 04:20 Calcium 8.1 mg/dL (8.5-10.1) L 11/04/23 04:20 Corrected Calcium 9.2 mg/dL (8.5-10.1) 11/04/23 04:20 Magnesium 1.9 mg/dL (2.0-2.9) L 11/04/23 04:20 Total Bilirubin 0.20 mg/dL (0.2-1.0) 11/04/23 04:20 AST 18 Units/L (15-37) 11/04/23 04:20 ALT 29 Units/L (12-78) 11/04/23 04:20 Alkaline Phosphatase 118 Units/L (46-116) H 11/04/23 04:20 Creatine Kinase 130 Units/L (39-308) 11/01/23 08:03 Troponin I High Sens 72.2 ng/L (4.0-60.0) H* 11/02/23 08:48 B-Natriuretic Peptide 858 pg/mL (0-79) H 11/03/23 04:20 Total Protein 6.4 g/dL (6.4-8.2) 11/04/23 04:20 Albumin 2.6 g/dL (3.4-5.0) L 11/04/23 04:20 Globulin 3.8 g/dL (2.5-4.5) 11/04/23 04:20 Albumin/Globulin Ratio 0.7 Ratio (1.1-2.1) L 11/04/23 04:20 Amylase 43 Units/L (25-115) 11/01/23 01:34 Lipase 35 Units/L (16-77) 11/01/23 01:34 TSH 3rd Generation 0.365 uIU/mL (0.358-3.74) 11/01/23 13:40 Specimen Type Clean catch urine 11/01/23 02:32 Urine Color Dark yellow (YELLOW) 11/01/23 02:32 Urine Appearance Clear (CLEAR) 11/01/23 02:32 Urine pH 6.0 (5.0 - 8.0) 11/01/23 02:32 Ur Specific [place] 1.025 (1.000-1.030) 11/01/23 02:32 Urine Protein 2+ (NEGATIVE) 11/01/23 02:32 Urine Glucose (UA) Negative (NEGATIVE) 11/01/23 02:32 Urine Ketones Negative (NEGATIVE) 11/01/23 02:32 Urine Blood Negative (NEGATIVE) 11/01/23 02:32 Urine Nitrite Negative (NEGATIVE) 11/01/23 02:32 Urine Bilirubin Negative (NEGATIVE) 11/01/23 02:32 Urine Urobilinogen 1+ (NORMAL) 11/01/23 02:32 Ur Leukocyte Esterase Negative (NEGATIVE) 11/01/23 02:32 Urine RBC None seen /HPF (0-3) 11/01/23 02:32 Urine WBC 0-2 /HPF (0-5) 11/01/23 02:32 Ur Squamous Epith Cells Rare /HPF (NEGATIVE) 11/01/23 02:32 Urine Bacteria Trace /HPF (NEGATIVE) 11/01/23 02:32 Urine Mucus Few /HPF (NEGATIVE) 11/01/23 02:32 Ur Culture Indicated? No/not indicated 11/01/23 02:32 Digoxin < 0.30 ng/mL (0.9-2) L 11/02/23 08:22 Urine Opiates Screen Negative (NEG=<300) 11/01/23 02:32 Urine Methadone Screen Negative (NEG=<300) 11/01/23 02:32 Ur Barbiturates Screen Negative (NEG=<200) 11/01/23 02:32 Ur Phencyclidine Scrn Negative (NEG=<25) 11/01/23 02:32 Ur Amphetamines Screen Positive (NEG=<1000) 11/01/23 02:32 U Benzodiazepines Scrn Negative (NEG=<200) 11/01/23 02:32 Urine Cocaine Screen Negative (NEG=<300) 11/01/23 02:32 U Marijuana (THC) Screen Negative (NEG=<50) 11/01/23 02:32 SARS-CoV-2 (PCR) Negative (NEGATIVE) 11/01/23 01:16 Influenza Type A (PCR) Negative (NEGATIVE) 11/01/23 01:16 Influenza Type B (PCR) Negative (NEGATIVE) 11/01/23 01:16 RSV (PCR) Negative (NEGATIVE) 11/01/23 01:16 Reason For Visit: CHF EXACERBATION Discharge Date Discharge Date: 11/04/23 Discharge Diagnosis All Active Problems (Updated 11/01/23 @ 14:03 by NAVARRO CAMP) Hypertension (Acute) Nonischemic cardiomyopathy (Acute) Chest pain not due to acute coronary syndrome (Acute) Methamphetamine use (Acute) Epididymitis with no abscess (Acute) Pneumonia (Acute) CHF (congestive heart failure) (Acute) Asthma exacerbation (Acute) Chest pain (Acute) CHF (congestive heart failure) (Acute) Acute exacerbation of CHF (congestive heart failure) (Acute) Plan of Treatment: Continue with present treatment and follow up plan. Pt is to keep follow up appointment as instructed and take medications as ordered. Discharge Medications Discharge Medications: No Known Drug Allergies Allergy (Verified 11/01/23 07:39) CONTINUE taking the following medications cholecalciferol (vitamin D3) 50 mcg (2,000 unit) capsule (Vitamin D3) 2,000 unit PO DAILY 11/01/23 [History] New Prescriptions apixaban 5 mg tablet (Eliquis) 5 mg PO BID 30 days #60 tabs 11/04/23 [Rx] atorvastatin 40 mg tablet (Lipitor) 40 mg PO QDAY 30 days #30 tabs 11/04/23 [Rx] bisoprolol fumarate 10 mg tablet 10 mg PO QDAY 30 days #30 tabs 11/04/23 [Rx] carvedilol 12.5 mg tablet 6.25 mg PO BID 30 days #30 tabs 11/04/23 [Rx] digoxin 250 mcg (0.25 mg) tablet 250 mcg PO QDAY 30 days #30 tabs 11/04/23 [Rx] hydrochlorothiazide 12.5 mg tablet 12.5 mg PO QAM 30 days #30 tabs 11/04/23 [Rx] sacubitril 24 mg-valsartan 26 mg tablet (Entresto) 1 tab PO BID 30 days #60 tabs 11/04/23 [Rx] Discharge Plan Discharge Plan Hospital Course: Patient is a 33-year-old male admitted for CHF exacerbation and methamphetamine abuse. His hospital/treatment course included cardiology consult-Dr Camp, that adjusted his medications. Patient responded well to treatments. His symptoms significantly improved. Patient was discharged in stable condition. Rx all of his medications. Instructed to stop methamphetamine use. Patient instructed follow-up with PCP and cardiology in 1 week. Patient Disposition: HOME, SELF-CARE Condition: Stable Health Concerns: Post Hospitalization: new medications and changes needed to prevent readmission or further decline. Pt educated and given instructions on all concerns. Plan of Treatment: Continue with present treatment and follow up plan. Pt is to keep follow up appointment as instructed and take medications as ordered. Prescriptions: New carvedilol 12.5 mg Tablet 6.25 mg PO BID 30 Days Qty: 30 0RF Entresto 24-26 mg Tablet 1 tab PO BID 30 Days Qty: 60 0RF Continued cholecalciferol (vitamin D3) [Vitamin D3] 50 mcg (2,000 unit) Capsule 2,000 unit PO DAILY atorvastatin [Lipitor] 40 mg Tablet 40 mg PO QDAY 30 Days Qty: 30 0RF digoxin 250 mcg (0.25 mg) Tablet 250 mcg PO QDAY 30 Days Qty: 30 0RF bisoprolol fumarate 10 mg Tablet 10 mg PO QDAY 30 Days Qty: 30 0RF hydrochlorothiazide 12.5 mg Tablet 12.5 mg PO QAM 30 Days Qty: 30 0RF Eliquis 5 mg Tablet 5 mg PO BID 30 Days Qty: 60 0RF Discontinued Entresto 97-103 mg Tablet 1 tab PO BID Follow ups/Referrals Follow ups/Referrals: NFD,None [Primary Care Provider] - 3 days Instructions Stand Alone Forms: Excuse From Work or School, Post Hospital Follow Up Care
== END 2023-11-04 11:35 | disposition home or self-care (01) | DRG 293 ==
LOC: ER 23:32 → ICU 11-01 06:44
PROVIDERS: ADMIT Internal Medicine; ATTEND Internal Medicine
DX: R00.0 Tachycardia, unspecified; I42.8 Other cardiomyopathies; R10.84 Generalized abdominal pain; I50.9 Heart failure, unspecified; J06.9 Acute upper respiratory infection, unspecified; R06.02 Shortness of breath; R77.8 Other specified abnormalities of plasma proteins; Z20.822 Contact with and (suspected) exposure to COVID-19; I11.0 Hypertensive heart disease with heart failure; K52.89 Other specified noninfective gastroenteritis and colitis

== ENCOUNTER 2024-03-17 19:42 | Observation (INO) ==
--- NOTE | 2024-03-17 20:18 | DR.CP ---
HPI Time Seen Time Seen by Provider: 03/17/24 20:18 PCP Primary Care Physician: DELGADO Complaint Chief Complaint:: PT TO ED C/O UPPER EPIGASTRIC PAIN THAT IS WORSE WITH BREATHING. PT STATES PAIN RADIATES TO RIGHT SIDE AND STATES "I THINK IT IS MY GALLBLADDER." Self Treatment fo Chief Complaint: NONE COVID-19 Coronavirus risk:travel/contact w/high risk person: No Has patient experienced Coronavirus symptoms: No Source History Provided: Patient Mode of Arrival Mode of Arrival: Ambulatory Timing Onset of Chief Complaint: 03/12/24 Location Chest Pain Radiation Location: Abdomen Associated Signs and Symptoms Associated Signs and Symptoms: Abdominal Pain PMH PMH Past Medical History: Yes Past Medical History: Asthma, CHF, Dyslipidemia and Hypertension Past Surgical History: No Surgical History: No History Family History History of Family Medical Conditions: Yes Family Medical History: Diabetes Mellitus, Cancer, [place], Heart Failure and Hypertension Social History Type of Tobacco Use: Cigarettes Alcohol Use: Occasionally Do you use any recreational Drugs:: No Lives With: Alone Lives Where: Home Travel Risk Coronavirus risk:travel/contact w/high risk person: No Has patient experienced Coronavirus symptoms: No Infectious screening Have you traveled outside the country in the last 6 months?: No Isolation: Standard PE Vitals Vitals: Vital Signs Temperature 97.6 F Pulse Rate 84 Pulse Rate 86 Pulse Rate 87 Pulse Rate 84 Pulse Rate 86 Pulse Rate 86 Pulse Rate 87 Pulse Rate 86 Pulse Rate 83 Pulse Rate 82 Pulse Rate 82 Pulse Rate 86 Pulse Rate 87 Pulse Rate 88 Pulse Rate 85 Pulse Rate 86 Respiratory Rate 18 Respiratory Rate 18 Blood Pressure 136/93 Blood Pressure 148/81 Blood Pressure 148/81 Blood Pressure 148/81 Blood Pressure 116/85 Blood Pressure 114/80 Blood Pressure 124/87 Blood Pressure 117/81 Blood Pressure 121/92 Blood Pressure 126/92 O2 Sat by Pulse Oximetry 97 O2 Sat by Pulse Oximetry 98 O2 Sat by Pulse Oximetry 99 O2 Sat by Pulse Oximetry 99 O2 Sat by Pulse Oximetry 96 O2 Sat by Pulse Oximetry 100 O2 Sat by Pulse Oximetry 100 O2 Sat by Pulse Oximetry 99 O2 Sat by Pulse Oximetry 99 O2 Sat by Pulse Oximetry 98 O2 Sat by Pulse Oximetry 100 O2 Sat by Pulse Oximetry 100 O2 Sat by Pulse Oximetry 100 O2 Sat by Pulse Oximetry 100 O2 Sat by Pulse Oximetry 100 O2 Sat by Pulse Oximetry 100 ROR Labs Reviewed 03/17/24 20:35 03/17/24 20:35 Laboratory: WBC 9.5 X10^3/uL (3.6-10.0) 03/17/24 20:35 RBC 3.92 X10^6/uL (4.7-6.0) L 03/17/24 20:35 Hgb 11.4 g/dL (13.5-18.0) L 03/17/24 20:35 Hct 36.4 % (42.0-54.0) L 03/17/24 20:35 MCV 92.7 fL (80.0-100.0) 03/17/24 20:35 MCH 29.0 pg (27.0-34.0) 03/17/24 20:35 MCHC 31.3 g/dL (33.0-35.0) L 03/17/24 20:35 RDW 18.2 % (11.6-16.5) H 03/17/24 20:35 Plt Count 213 X10^3/uL (150.0-450.0) 03/17/24 20:35 MPV 7.3 fL (7.4-11.0) L 03/17/24 20:35 Neut % (Auto) 51.9 % (42.0-75.0) 03/17/24 20:35 Lymph % (Auto) 29.0 % (21.0-51.0) 03/17/24 20:35 [place] % (Auto) 16.1 % (0.0-13.0) H 03/17/24 20:35 Eos % (Auto) 1.9 % (0.9-2.9) 03/17/24 20:35 Baso % (Auto) 1.1 % (0.2-1.0) H 03/17/24 20:35 Neut # (Auto) 4.9 x10^3/uL (2.2-4.8) H 03/17/24 20:35 Lymph # (Auto) 2.7 X10^3/uL (1.3-2.9) 03/17/24 20:35 [place] # (Auto) 1.5 x10^3/uL (0.3-0.8) H 03/17/24 20:35 Eos # (Auto) 0.2 x10^3/uL (0.0-0.2) 03/17/24 20:35 Baso # (Auto) 0.1 X10^3/uL (0.0-0.1) 03/17/24 20:35 Absolute Nucleated RBC 0.1 /100WBC 03/17/24 20:35 Sodium 134 mmol/L (136-145) L 03/17/24 20:35 Corrected Sodium TNP 03/17/24 20:35 Potassium 4.3 mmol/L (3.5-5.1) 03/17/24 20:35 Chloride 102 mmol/L (98-107) 03/17/24 20:35 Carbon Dioxide 24.0 mmol/L (21-32) 03/17/24 20:35 BUN 21 mg/dL (7-18) H 03/17/24 20:35 Creatinine 1.39 mg/dL (0.70-1.30) H 03/17/24 20:35 Est GFR (MDRD) Af Amer > 60 (>60) 03/17/24 20:35 Est GFR (MDRD) Non-Af > 60 (>60) 03/17/24 20:35 Glucose 92 mg/dL (65-99) 03/17/24 20:35 Calcium 8.2 mg/dL (8.5-10.1) L 03/17/24 20:35 Corrected Calcium 9.3 mg/dL (8.5-10.1) 03/17/24 20:35 Total Bilirubin 1.70 mg/dL (0.2-1.0) H 03/17/24 20:35 AST 845 Units/L (15-37) H 03/17/24 20:35 ALT 721 Units/L (12-78) H 03/17/24 20:35 Alkaline Phosphatase 225 Units/L (46-116) H 03/17/24 20:35 Total Protein 7.1 g/dL (6.4-8.2) 03/17/24 20:35 Albumin 2.6 g/dL (3.4-5.0) L 03/17/24 20:35 Globulin 4.5 g/dL (2.5-4.5) 03/17/24 20:35 Albumin/Globulin Ratio 0.6 Ratio (1.1-2.1) L 03/17/24 20:35 Amylase 37 Units/L (25-115) 03/17/24 20:35 Lipase 32 Units/L (16-77) 03/17/24 20:35 Opioid Opioid Risk Tool Age (Rambo box if 16-45): No History of Preadolescent Sexual Abuse: No Total: 0 Total Score Risk Category: Low Risk Copyright: Mani CUNHA predicting aberrant behaviors Discharge Plan Discharge Plan Patient Disposition: HOME, SELF-CARE Condition: Stable Prescriptions: No Action furosemide 40 mg tablet 40 mg PO QDAY atorvastatin 40 mg tablet 40 mg PO QDAY carvedilol 12.5 mg tablet 6.25 mg PO BID digoxin 250 mcg (0.25 mg) tablet 250 mcg PO QDAY hydrochlorothiazide 12.5 mg tablet 12.5 mg PO QAM Entresto 24-26 mg tablet 1 tab PO BID Health Concerns: Post Hospitalization: new medications and changes needed to prevent readmission or further decline. Pt educated and given instructions on all concerns. Plan of Treatment: Continue with present treatment and follow up plan. Pt is to keep follow up appointment as instructed and take medications as ordered. Orders to Discharge Patient Discharge Orders: Transfer (Routine); Ordered 03/18/24 Ordered By: SAM HERNDON Follow ups/Referrals Follow ups/Referrals: [facility],None [Primary Care Provider] - 3 days Instructions Stand Alone Forms: Post Hospital Follow Up Care
[2024-03-17 20:39] LABS: BASOPHILS # (AUTO) 0.1 X10^3/uL (0.0-0.1); BASOPHILS % (AUTO) 1.1 % (0.2-1.0); EOSINOPHILS # (AUTO) 0.2 x10^3/uL (0.0-0.2); EOSINOPHILS % (AUTO) 1.9 % (0.9-2.9); HEMATOCRIT 36.4 % (42.0-54.0); HEMOGLOBIN 11.4 g/dL (13.5-18.0); LYMPHOCYTES # (AUTO) 2.7 X10^3/uL (1.3-2.9); MEAN CORPUSCULAR HGB CONC 31.3 g/dL (33.0-35.0); MEAN CORPUSCULAR VOLUME 92.7 fL (80.0-100.0); MEAN PLATELET VOLUME 7.3 fL (7.4-11.0); MONOCYTES # (AUTO) 1.5 x10^3/uL (0.3-0.8); MONOCYTES % (AUTO) 16.1 % (0.0-13.0); NEUTROPHILS # (AUTO) 4.9 x10^3/uL (2.2-4.8); NEUTROPHILS % (AUTO) 51.9 % (42.0-75.0); PLATELET COUNT 213 X10^3/uL (150.0-450.0); RED BLOOD COUNT 3.92 X10^6/uL (4.7-6.0); RED CELL DISTRIBUTION WIDTH 18.2 % (11.6-16.5); WHITE BLOOD COUNT 9.5 X10^3/uL (3.6-10.0)
[2024-03-17 20:53] LABS: ALANINE AMINOTRANSFERASE 721 Units/L (12-78); ALBUMIN 2.6 g/dL (3.4-5.0); ALKALINE PHOSPHATASE 225 Units/L (46-116); AMYLASE 37 Units/L (25-115); ASPARTATE AMINO TRANSFERASE 845 Units/L (15-37); BLOOD UREA NITROGEN 21 mg/dL (7-18); CALCIUM 8.2 mg/dL (8.5-10.1); CHLORIDE 102 mmol/L (98-107); COR CA(FOR HYPOALB) 9.3 mg/dL (8.5-10.1); CREATININE 1.39 mg/dL (0.70-1.30); GLUCOSE 92 mg/dL (65-99); LIPASE 32 Units/L (16-77); POTASSIUM 4.3 mmol/L (3.5-5.1); SODIUM 134 mmol/L (136-145); TOTAL PROTEIN 7.1 g/dL (6.4-8.2); eGFR NON BLACK RACES > 60 (>60)
[2024-03-17] MEDS: ZOFRAN INJ 4 MG VIAL IM ONE (22:48)
[2024-03-17] MEDS: MORPHINE SULFATE INJ 4 MG IM ONE (22:48)
--- NOTE | 2024-03-17 23:07 | RAD ---
EXAM:ACUTE ABDOMEN SERI ESHISTORY:ABD DISTENTION;COMPARISON:No relevant prior studies available.TECHNIQUE:AP supine and upright abdominal radiographs with chest radiography, 3 images.FINDINGS:Gas in nondistended colon.No gross free air.No abnormal calcifications.Lungs are clear of focal airspace disease.Mild cardiomegaly.No pneumothorax.No pleural effusion.No acute osseous abnormality.IMPRESSION:No acute intra-abdominal or intrathoracic abnormality detected.THIS IS AN ELECTRONICALLY VERIFIED FINAL REPORT03/17/2024 11:04 PM - Electronically signed by Yariel Vital MD
[2024-03-17] MEDS: MORPHINE SULFATE INJ 4 MG IVP ONE (23:46)
[2024-03-17] MEDS: ZOFRAN INJ 4 MG VIAL IVP ONE (23:46)
[2024-03-18] MEDS ORDERED: ZOFRAN INJ 4 MG VIAL IVP PRN (00:59)
[2024-03-18 02:10] VITALS: BMI 24.3
[2024-03-18] MEDS: NS 1,000 ML IV 1,000 ML IV SCH (02:10)
[2024-03-18 04:29] LABS: BILIRUBIN,URINE NEGATIVE (NEGATIVE); BLOOD/HEMOGLOBIN,URINE NEGATIVE (NEGATIVE); GLUCOSE, URINE NEGATIVE (NEGATIVE); KETONES,URINE NEGATIVE (NEGATIVE); LEUKOCYTE ESTERASE ,URINE NEGATIVE (NEGATIVE); NITRITES,URINE NEGATIVE (NEGATIVE); PROTEIN,URINE 2+ (NEGATIVE); UROBILINOGEN,URINE NORMAL (NORMAL)
[2024-03-18 04:34] LABS: APPEARANCE,URINE CLEAR (CLEAR); COLOR,URINE DARK YELLOW (YELLOW)
[2024-03-18 04:35] LABS: BACTERIA,URINE NEGATIVE /HPF (NEGATIVE); HYALINE CASTS, URINE FEW /LPF (NEGATIVE); RBC,URINE NONE SEEN /HPF (0-3); SQUAMOUS EPITHELIAL CELL,UR NEGATIVE /HPF (NEGATIVE)
[2024-03-18 05:32] LABS: BASOPHILS # (AUTO) 0.1 X10^3/uL (0.0-0.1); BASOPHILS % (AUTO) 0.9 % (0.2-1.0); EOSINOPHILS # (AUTO) 0.4 x10^3/uL (0.0-0.2); EOSINOPHILS % (AUTO) 3.9 % (0.9-2.9); HEMATOCRIT 37.1 % (42.0-54.0); HEMOGLOBIN 11.8 g/dL (13.5-18.0); LYMPHOCYTES # (AUTO) 2.6 X10^3/uL (1.3-2.9); LYMPHOCYTES % (AUTO) 25.3 % (21.0-51.0); MEAN CORPUSCULAR HEMOGLOBIN 28.7 pg (27.0-34.0); MEAN CORPUSCULAR HGB CONC 31.7 g/dL (33.0-35.0); MEAN CORPUSCULAR VOLUME 90.6 fL (80.0-100.0); MONOCYTES # (AUTO) 1.3 x10^3/uL (0.3-0.8); MONOCYTES % (AUTO) 12.4 % (0.0-13.0); NEUTROPHILS # (AUTO) 5.9 x10^3/uL (2.2-4.8); NEUTROPHILS % (AUTO) 57.5 % (42.0-75.0); PLATELET COUNT 246 X10^3/uL (150.0-450.0); RED CELL DISTRIBUTION WIDTH 18.3 % (11.6-16.5); WHITE BLOOD COUNT 10.4 X10^3/uL (3.6-10.0)
[2024-03-18 05:53] LABS: ALANINE AMINOTRANSFERASE 632 Units/L (12-78); ALBUMIN 2.4 g/dL (3.4-5.0); ALKALINE PHOSPHATASE 214 Units/L (46-116); AMYLASE 31 Units/L (25-115); ASPARTATE AMINO TRANSFERASE 614 Units/L (15-37); BLOOD UREA NITROGEN 21 mg/dL (7-18); CALCIUM 8.4 mg/dL (8.5-10.1); CARBON DIOXIDE 25.6 mmol/L (21-32); CHLORIDE 102 mmol/L (98-107); COR CA(FOR HYPOALB) 9.7 mg/dL (8.5-10.1); CREATININE 1.29 mg/dL (0.70-1.30); GLUCOSE 79 mg/dL (65-99); LIPASE 18 Units/L (16-77); POTASSIUM 4.3 mmol/L (3.5-5.1); SODIUM 136 mmol/L (136-145); TOTAL PROTEIN 6.7 g/dL (6.4-8.2); eGFR NON BLACK RACES > 60 (>60)
--- NOTE | 2024-03-18 09:08 | DR.CONSULT ---
CONSULT Consultation for Day of: Date: 03/18/24 Chief Complaint Chief Complaint: abdominal pain Allergies Allergies Allergy/AdvReac Type Severity Reaction Status Date / Time No Known Drug Allergies Allergy Verified 03/17/24 20:28 History of Present Illness History of Present Illness: pt known to me from 11/07- ef 20% but ran out of his meds- put back on corag/entrresto/digoxin- states doing ok w/o cp/chf/edema- in hosp for acute gb disease- states compliant with meds, cath 2020: no cad Past Medical History Past Medical History: Asthma, CHF, Dyslipidemia and Hypertension Past Surgical History Surgical History: No History Family History Family Medical History: Diabetes Mellitus, Cancer, [place], Heart Failure and Hypertension Social History Does patient currently use any type of tobacco product: Yes Type of Tobacco Use: Vape Alcohol Use: Occasionally Drug Use: Methamphetamine and Marijuana Medications Home Medications: No Known Drug Allergies Allergy (Verified 03/17/24 20:28) CONTINUE taking the following medications atorvastatin 40 mg tablet 40 mg PO QDAY 03/17/24 [History] carvedilol 12.5 mg tablet 6.25 mg PO BID 03/17/24 [History] digoxin 250 mcg (0.25 mg) tablet 250 mcg PO QDAY 03/17/24 [History] furosemide 40 mg tablet 40 mg PO QDAY 03/17/24 [History] hydrochlorothiazide 12.5 mg tablet 12.5 mg PO QAM 03/17/24 [History] sacubitril 24 mg-valsartan 26 mg tablet (Entresto) 1 tab PO BID 03/17/24 [History] Physical Exam Vital Signs: Vital Signs Temperature 98.8 F Temperature 97.9 F Temperature 98.0 F Pulse Rate 84 Pulse Rate 84 Pulse Rate 88 Pulse Rate 82 Pulse Rate 85 Respiratory Rate 17 Blood Pressure 136/99 Blood Pressure 133/104 Blood Pressure 137/93 Blood Pressure 138/99 O2 Sat by Pulse Oximetry 100 O2 Sat by Pulse Oximetry 100 O2 Sat by Pulse Oximetry 98 O2 Sat by Pulse Oximetry 98 O2 Sat by Pulse Oximetry 97 alert ox3 nad elevated jvd clear lungs rrr no edema labs:wbc 10k, cr 1.29, alb 2.4, tb 2.2 ast 614 alt 620 alkp 217 bnp 2500 03/11 cxr: cm nad ekg:nsr lae lvh/st abnl Plan (1) Cardiomyopathy: Status: Acute Narrative Support Text: will reassess ef- needs to be back on his chronic meds delta- avoid too much fluid rene if ef still bad Plan: echo delta- resume meds delta- careful with fluid if ef still bad (2) Acute cholecystitis: Status: Acute Narrative Support Text: will be high risk for surgery if ef bad
[2024-03-18] MEDS: ENTRESTO 24/26 MG TABLET PO SCH (10:31)
[2024-03-18] MEDS: LANOXIN PO SCH (10:32)
[2024-03-18] MEDS: HYDROCHLOROTHIAZIDE 12.5 MG CAP PO SCH (10:32)
[2024-03-18] MEDS: LIPITOR TAB 40 MG PO SCH (10:32)
[2024-03-18] MEDS: COREG TAB 6.25 MG PO SCH (10:32)
--- NOTE | 2024-03-18 15:01 | DR.H&P ---
H&P History & Physical for Day of: H&P Date: 03/18/24 Chief Complaint Chief Complaint: Epigastric pain radiating to the right upper quadrant. History of Present Illness History of Present Illness: This is a 33-year-old black male known to me. He comes into the [facility] emergency department complaining of epigastric pain radiating to the right upper quadrant. He states he thinks is his gallbladder. He does have recent history of a gallbladder ultrasound that showed gallstones. The patient does have congestive heart failure with a recent ejection fraction around 20%. He has grade 3 diastolic dysfunction. Cardiology has seen him and states that he is at high risk for surgery. He has already been sent to use [facility] intermittent right upper quadrant pain since then and is getting worse. Hospital in the last few weeks however they did not perform a cholecystectomy ascending back he is had. Our general surgeon, Dr. Mcmahon feels like he needs a cholecystectomy to relieve his chronic pain from it. Past Medical History Past Medical History: Asthma, CHF, Dyslipidemia and Hypertension Past Surgical History Surgical History: No History Family History Family Medical History: Diabetes Mellitus, Cancer, [place], Heart Failure and Hypertension Social History Does patient currently use any type of tobacco product: Yes Type of Tobacco Use: Vape Alcohol Use: Occasionally Drug Use: Methamphetamine and Marijuana Medications Home Medications: Home Medications Medication Instructions Recorded Confirmed Type atorvastatin 40 mg tablet 40 mg PO QDAY 03/17/24 03/17/24 History carvedilol 12.5 mg tablet 6.25 mg PO BID 03/17/24 03/17/24 History digoxin 250 mcg (0.25 mg) tablet 250 mcg PO QDAY 03/17/24 03/17/24 History furosemide 40 mg tablet 40 mg PO QDAY 03/17/24 03/17/24 History hydrochlorothiazide 12.5 mg tablet 12.5 mg PO QAM 03/17/24 03/17/24 History sacubitril 24 mg-valsartan 26 mg 1 tab PO BID 03/17/24 03/17/24 History tablet (Entresto) Allergies Allergies Allergy/AdvReac Type Severity Reaction Status Date / Time No Known Drug Allergies Allergy Verified 03/17/24 20:28 Labs 03/18/24 04:13 03/18/24 04:13 Labs: Laboratory WBC 10.4 X10^3/uL (3.6-10.0) H 03/18/24 04:13 RBC 4.10 X10^6/uL (4.7-6.0) L 03/18/24 04:13 Hgb 11.8 g/dL (13.5-18.0) L 03/18/24 04:13 Hct 37.1 % (42.0-54.0) L 03/18/24 04:13 MCV 90.6 fL (80.0-100.0) 03/18/24 04:13 MCH 28.7 pg (27.0-34.0) 03/18/24 04:13 MCHC 31.7 g/dL (33.0-35.0) L 03/18/24 04:13 RDW 18.3 % (11.6-16.5) H 03/18/24 04:13 Plt Count 246 X10^3/uL (150.0-450.0) 03/18/24 04:13 MPV 8.0 fL (7.4-11.0) 03/18/24 04:13 Neut % (Auto) 57.5 % (42.0-75.0) 03/18/24 04:13 Lymph % (Auto) 25.3 % (21.0-51.0) 03/18/24 04:13 [place] % (Auto) 12.4 % (0.0-13.0) 03/18/24 04:13 Eos % (Auto) 3.9 % (0.9-2.9) H 03/18/24 04:13 Baso % (Auto) 0.9 % (0.2-1.0) 03/18/24 04:13 Neut # (Auto) 5.9 x10^3/uL (2.2-4.8) H 03/18/24 04:13 Lymph # (Auto) 2.6 X10^3/uL (1.3-2.9) 03/18/24 04:13 [place] # (Auto) 1.3 x10^3/uL (0.3-0.8) H 03/18/24 04:13 Eos # (Auto) 0.4 x10^3/uL (0.0-0.2) H 03/18/24 04:13 Baso # (Auto) 0.1 X10^3/uL (0.0-0.1) 03/18/24 04:13 Absolute Nucleated RBC 0.3 /100WBC 03/18/24 04:13 Sodium 136 mmol/L (136-145) 03/18/24 04:13 Corrected Sodium TNP 03/18/24 04:13 Potassium 4.3 mmol/L (3.5-5.1) 03/18/24 04:13 Chloride 102 mmol/L (98-107) 03/18/24 04:13 Carbon Dioxide 25.6 mmol/L (21-32) 03/18/24 04:13 BUN 21 mg/dL (7-18) H 03/18/24 04:13 Creatinine 1.29 mg/dL (0.70-1.30) 03/18/24 04:13 Est GFR (MDRD) Af Amer > 60 (>60) 03/18/24 04:13 Est GFR (MDRD) Non-Af > 60 (>60) 03/18/24 04:13 Glucose 79 mg/dL (65-99) 03/18/24 04:13 Calcium 8.4 mg/dL (8.5-10.1) L 03/18/24 04:13 Corrected Calcium 9.7 mg/dL (8.5-10.1) 03/18/24 04:13 Magnesium 2.0 mg/dL (2.0-2.9) 03/18/24 04:13 Total Bilirubin 2.20 mg/dL (0.2-1.0) H 03/18/24 04:13 AST 614 Units/L (15-37) H 03/18/24 04:13 ALT 632 Units/L (12-78) H 03/18/24 04:13 Alkaline Phosphatase 214 Units/L (46-116) H 03/18/24 04:13 Total Protein 6.7 g/dL (6.4-8.2) 03/18/24 04:13 Albumin 2.4 g/dL (3.4-5.0) L 03/18/24 04:13 Globulin 4.3 g/dL (2.5-4.5) 03/18/24 04:13 Albumin/Globulin Ratio 0.6 Ratio (1.1-2.1) L 03/18/24 04:13 Amylase 31 Units/L (25-115) 03/18/24 04:13 Lipase 18 Units/L (16-77) 03/18/24 04:13 Specimen Type Clean catch urine 03/18/24 04:13 Urine Color Dark yellow (YELLOW) 03/18/24 04:13 Urine Appearance Clear (CLEAR) 03/18/24 04:13 Urine pH 6.0 (5.0 - 8.0) 03/18/24 04:13 Ur Specific [place] 1.015 (1.000-1.030) 03/18/24 04:13 Urine Protein 2+ (NEGATIVE) 03/18/24 04:13 Urine Glucose (UA) Negative (NEGATIVE) 03/18/24 04:13 Urine Ketones Negative (NEGATIVE) 03/18/24 04:13 Urine Blood Negative (NEGATIVE) 03/18/24 04:13 Urine Nitrite Negative (NEGATIVE) 03/18/24 04:13 Urine Bilirubin Negative (NEGATIVE) 03/18/24 04:13 Urine Urobilinogen Normal (NORMAL) 03/18/24 04:13 Ur Leukocyte Esterase Negative (NEGATIVE) 03/18/24 04:13 Urine RBC None seen /HPF (0-3) 03/18/24 04:13 Urine WBC 0-2 /HPF (0-5) 03/18/24 04:13 Ur Squamous Epith Cells Negative /HPF (NEGATIVE) 03/18/24 04:13 Urine Bacteria Negative /HPF (NEGATIVE) 03/18/24 04:13 Hyaline Casts Few /LPF (NEGATIVE) 03/18/24 04:13 Urine Mucus Few /HPF (NEGATIVE) 03/18/24 04:13 Ur Culture Indicated? No/not indicated 03/18/24 04:13 Review of Systems Constitutional: Weakness Eyes: No Symptoms Reported ENT: No Symptoms Reported Respiratory: No Symptoms Reported Cardiovascular: Orthopnea Gastrointestinal: Nausea and Abdominal Pain; denies Vomiting, Diarrhea or Constipation Genitourinary: No Symptoms Reported Musculoskeletal: No Symptoms Reported Skin: No Symptoms Reported Neurological: No Symptoms Reported Physical Exam Vital Signs: Vital Signs Temperature 97.4 F Temperature 98.8 F Pulse Rate 84 Pulse Rate 85 Pulse Rate 85 Pulse Rate 84 Pulse Rate 79 Pulse Rate 83 Pulse Rate 84 Pulse Rate 84 Pulse Rate 88 Blood Pressure 132/95 Blood Pressure 141/101 Blood Pressure 137/103 Blood Pressure 144/105 Blood Pressure 137/102 Blood Pressure 136/99 Blood Pressure 133/104 O2 Sat by Pulse Oximetry 95 O2 Sat by Pulse Oximetry 98 O2 Sat by Pulse Oximetry 97 O2 Sat by Pulse Oximetry 93 O2 Sat by Pulse Oximetry 97 O2 Sat by Pulse Oximetry 100 O2 Sat by Pulse Oximetry 100 O2 Sat by Pulse Oximetry 98 Oriented: Normal, Time, Person and Place Eyes: Normal Ear: Normal Nose: Normal Throat: Normal Respiratory: Clear Throughout Cardiovascular: Normal Auscultation: Bowel Sounds: Normal Palpation: Normal Tenderness: RUQ and Epigastric Skin: Normal Musculoskeletal: Normal Psychiatric: Agitation Mood Description: Depressed and Suspicious Affect: Depressed and Quiet Speech Pattern: Clear and Appropriate Assessment/Plan (1) Cardiomyopathy: Status: Acute Plan: Cardiology, Dr. Adame has seen the patient and states that he is high risk for cholecystectomy (2) Acute cholecystitis: Status: Acute Plan: General surgery seeing the patient and plans for Lyn cystectomy. (3) Congestive heart failure: Status: Acute (4) Grade III diastolic dysfunction: Status: Acute Plan: Treatment per cardiology (5) Elevated liver enzymes: Status: Acute Plan: Suspect the patient's liver enzymes will improve after cholecystectomy. (6) Abdominal pain, RUQ: Status: Acute (7) Hypertension: Status: Acute Plan: Monitor daily blood pressures. Continue carvedilol 6.25 mg p.o. twice daily, HCTZ 12.5 mg daily and Entresto.
[2024-03-18] MEDS: MORPHINE SULFATE INJ 2 MG INJ IVP PRN (23:15)
[2024-03-19 05:54] LABS: BASOPHILS # (AUTO) 0.1 X10^3/uL (0.0-0.1); BASOPHILS % (AUTO) 0.6 % (0.2-1.0); EOSINOPHILS # (AUTO) 0.8 x10^3/uL (0.0-0.2); EOSINOPHILS % (AUTO) 6.2 % (0.9-2.9); HEMATOCRIT 43.7 % (42.0-54.0); HEMOGLOBIN 13.8 g/dL (13.5-18.0); LYMPHOCYTES # (AUTO) 2.2 X10^3/uL (1.3-2.9); LYMPHOCYTES % (AUTO) 17.5 % (21.0-51.0); MEAN CORPUSCULAR HEMOGLOBIN 28.8 pg (27.0-34.0); MEAN CORPUSCULAR HGB CONC 31.7 g/dL (33.0-35.0); MEAN CORPUSCULAR VOLUME 90.8 fL (80.0-100.0); MEAN PLATELET VOLUME 7.9 fL (7.4-11.0); MONOCYTES # (AUTO) 1.7 x10^3/uL (0.3-0.8); MONOCYTES % (AUTO) 13.3 % (0.0-13.0); NEUTROPHILS # (AUTO) 7.7 x10^3/uL (2.2-4.8); NEUTROPHILS % (AUTO) 62.4 % (42.0-75.0); PLATELET COUNT 255 X10^3/uL (150.0-450.0); RED BLOOD COUNT 4.81 X10^6/uL (4.7-6.0); RED CELL DISTRIBUTION WIDTH 17.9 % (11.6-16.5); WHITE BLOOD COUNT 12.4 X10^3/uL (3.6-10.0)
[2024-03-19 06:10] LABS: ALANINE AMINOTRANSFERASE 397 Units/L (12-78); ALBUMIN 1.8 g/dL (3.4-5.0); ALKALINE PHOSPHATASE 188 Units/L (46-116); ASPARTATE AMINO TRANSFERASE 234 Units/L (15-37); BLOOD UREA NITROGEN 18 mg/dL (7-18); CALCIUM 7.3 mg/dL (8.5-10.1); CARBON DIOXIDE 25.3 mmol/L (21-32); CHLORIDE 104 mmol/L (98-107); COR CA(FOR HYPOALB) 9.1 mg/dL (8.5-10.1); COR NA(FOR HYPERGLY) 135 mmol/L (136-145); CREATININE 1.38 mg/dL (0.70-1.30); GLUCOSE 115 mg/dL (65-99); POTASSIUM 3.9 mmol/L (3.5-5.1); SODIUM 135 mmol/L (136-145); TOTAL PROTEIN 5.7 g/dL (6.4-8.2); eGFR NON BLACK RACES > 60 (>60)
--- NOTE | 2024-03-19 06:13 | MRI ---
EXAM: MRCP HISTORY: R/O COMMON BILE DUCT STONES; COMPARISON: 03/06/2024 TECHNIQUE: Multiplanar, multisequence MRI of the abdomen obtained without IV contrast with MRCP. Motion limited exam. FINDINGS: No focal hepatic abnormality. The gallbladder is unremarkable. No biliary ductal dilatation. Common bile duct measures up to 0.4 cm in diameter. No evidence of choledocholithiasis. The spleen, pancreas, bilateral adrenal glands, and bilateral kidneys demonstrate no significant abno rmality. No free fluid in the visualized abdomen. Expected vascular flow voids. Marrow signal is benign. IMPRESSION: No acute findings within limits. No evidence of cholelithiasis or choledocholithiasis. THIS IS AN ELECTRONICALLY VERIFIED FINAL REPORT 03/19/2024 6:10 AM - Electronically signed by Carlos Arambula MD
[2024-03-19] MEDS: LASIX PO SCH (09:27)
--- NOTE | 2024-03-19 12:37 | NOTE.SOAP ---
Soap Note Note for Day of Date of Exam: 03/19/24 Subjective Data Subjective Data: 03/24 belly pain, some sob- taking clear liquids and meds! ivfs cut back as not to provoke chf, EF still 20% Objective Data Objective Data: i/o yesterday: positive 2liters- labs: wbc 12.4 k 3.9 cr 1.39 MRI abd: no stones? bp 110-130 p 80s elevated jvd, lungs still clear, minimal edema, Assessment Assessment: abd pain-elevated lfts- gall sones on CT but not MRI??- cardiomyopathy Plan Plan: ivfs cut back- standard chf meds startedto include lasix- watch for chf
--- NOTE | 2024-03-19 16:18 | DR.PROGNOT ---
HOSPITAL PROGRESS NOTE Progress Note for Day of: Progress Note Date: 03/19/24 Chief Complaint Chief Complaint: Still having moderate abdominal pain, no nausea or vomiting. MRCP showed normal-sized common bile duct with no stones. Liver function tests are coming down. Echocardiogram showed low ejection fraction less than 20%. Past Medical Family Social History Allergies: Allergies No Known Drug Allergies Allergy (Verified 03/17/24 20:28) Vital Signs Vital Signs: Vital Signs Temperature 97.6 F Pulse Rate 85 Pulse Rate 84 Respiratory Rate 18 Respiratory Rate 17 Blood Pressure 131/90 O2 Sat by Pulse Oximetry 96 Physical Exam Oriented: Normal, Time, Person and Place Eyes: Normal Ear: Normal Nose: Normal Throat: Normal Cardiovascular: Normal GI:Auscultation: Normal GI:Palpation: Normal GI: Tenderness: RUQ and Epigastric (Moderate epigastric and right upper quadrant tenderness) Skin: Normal Musculoskeletal: Normal Psychiatric: Agitation Mood Description: Depressed and Suspicious Affect: Depressed and Quiet Speech Pattern: Clear and Appropriate Laboratory and Diagnostics 03/19/24 05:00 03/19/24 05:00 Labs: Laboratory WBC 12.4 X10^3/uL (3.6-10.0) H 03/19/24 05:00 RBC 4.81 X10^6/uL (4.7-6.0) 03/19/24 05:00 Hgb 13.8 g/dL (13.5-18.0) D 03/19/24 05:00 Hct 43.7 % (42.0-54.0) 03/19/24 05:00 MCV 90.8 fL (80.0-100.0) 03/19/24 05:00 MCH 28.8 pg (27.0-34.0) 03/19/24 05:00 MCHC 31.7 g/dL (33.0-35.0) L 03/19/24 05:00 RDW 17.9 % (11.6-16.5) H 03/19/24 05:00 Plt Count 255 X10^3/uL (150.0-450.0) 03/19/24 05:00 MPV 7.9 fL (7.4-11.0) 03/19/24 05:00 Neut % (Auto) 62.4 % (42.0-75.0) 03/19/24 05:00 Lymph % (Auto) 17.5 % (21.0-51.0) L 03/19/24 05:00 [place] % (Auto) 13.3 % (0.0-13.0) H 03/19/24 05:00 Eos % (Auto) 6.2 % (0.9-2.9) H 03/19/24 05:00 Baso % (Auto) 0.6 % (0.2-1.0) 03/19/24 05:00 Neut # (Auto) 7.7 x10^3/uL (2.2-4.8) H 03/19/24 05:00 Lymph # (Auto) 2.2 X10^3/uL (1.3-2.9) 03/19/24 05:00 [place] # (Auto) 1.7 x10^3/uL (0.3-0.8) H 03/19/24 05:00 Eos # (Auto) 0.8 x10^3/uL (0.0-0.2) H 03/19/24 05:00 Baso # (Auto) 0.1 X10^3/uL (0.0-0.1) 03/19/24 05:00 Absolute Nucleated RBC 0.1 /100WBC 03/19/24 05:00 Sodium 135 mmol/L (136-145) L 03/19/24 05:00 Corrected Sodium 135 mmol/L (136-145) L 03/19/24 05:00 Potassium 3.9 mmol/L (3.5-5.1) 03/19/24 05:00 Chloride 104 mmol/L (98-107) 03/19/24 05:00 Carbon Dioxide 25.3 mmol/L (21-32) 03/19/24 05:00 BUN 18 mg/dL (7-18) 03/19/24 05:00 Creatinine 1.38 mg/dL (0.70-1.30) H 03/19/24 05:00 Est GFR (MDRD) Af Amer > 60 (>60) 03/19/24 05:00 Est GFR (MDRD) Non-Af > 60 (>60) 03/19/24 05:00 Glucose 115 mg/dL (65-99) H 03/19/24 05:00 Calcium 7.3 mg/dL (8.5-10.1) L 03/19/24 05:00 Corrected Calcium 9.1 mg/dL (8.5-10.1) 03/19/24 05:00 Magnesium 2.0 mg/dL (2.0-2.9) 03/18/24 04:13 Total Bilirubin 1.00 mg/dL (0.2-1.0) 03/19/24 05:00 AST 234 Units/L (15-37) H 03/19/24 05:00 ALT 397 Units/L (12-78) H 03/19/24 05:00 Alkaline Phosphatase 188 Units/L (46-116) H 03/19/24 05:00 Total Protein 5.7 g/dL (6.4-8.2) L 03/19/24 05:00 Albumin 1.8 g/dL (3.4-5.0) L 03/19/24 05:00 Globulin 3.9 g/dL (2.5-4.5) 03/19/24 05:00 Albumin/Globulin Ratio 0.5 Ratio (1.1-2.1) L 03/19/24 05:00 Amylase 31 Units/L (25-115) 03/18/24 04:13 Lipase 18 Units/L (16-77) 03/18/24 04:13 Specimen Type Clean catch urine 03/18/24 04:13 Urine Color Dark yellow (YELLOW) 03/18/24 04:13 Urine Appearance Clear (CLEAR) 03/18/24 04:13 Urine pH 6.0 (5.0 - 8.0) 03/18/24 04:13 Ur Specific [place] 1.015 (1.000-1.030) 03/18/24 04:13 Urine Protein 2+ (NEGATIVE) 03/18/24 04:13 Urine Glucose (UA) Negative (NEGATIVE) 03/18/24 04:13 Urine Ketones Negative (NEGATIVE) 03/18/24 04:13 Urine Blood Negative (NEGATIVE) 03/18/24 04:13 Urine Nitrite Negative (NEGATIVE) 03/18/24 04:13 Urine Bilirubin Negative (NEGATIVE) 03/18/24 04:13 Urine Urobilinogen Normal (NORMAL) 03/18/24 04:13 Ur Leukocyte Esterase Negative (NEGATIVE) 03/18/24 04:13 Urine RBC None seen /HPF (0-3) 03/18/24 04:13 Urine WBC 0-2 /HPF (0-5) 03/18/24 04:13 Ur Squamous Epith Cells Negative /HPF (NEGATIVE) 03/18/24 04:13 Urine Bacteria Negative /HPF (NEGATIVE) 03/18/24 04:13 Hyaline Casts Few /LPF (NEGATIVE) 03/18/24 04:13 Urine Mucus Few /HPF (NEGATIVE) 03/18/24 04:13 Ur Culture Indicated? No/not indicated 03/18/24 04:13 Digoxin 0.43 ng/mL (0.9-2) L 03/19/24 05:00 Assessment and Plan 1: Recurrent biliary colic's, no evidence of acute cholecystitis or cholangitis with normal common bile duct. Patient is not a surgical candidate. To continue the current treatment plan. To follow as needed. 2: Liver dysfunction which is not related to gallstones 3: Cardiomyopathy, recent [place]
--- NOTE | 2024-03-19 16:42 | PCM.PROG ---
Progress Note Progress Note for Day of Date of Exam: 03/19/24 Subjective Subjective: This morning the patient complains of generalized abdominal pain. I spoke with the general surgeon, Dr. Mcmahon and he does not think it is the patient's gallbladder causing his symptoms. He believes is more likely hepatic congestion from congestive heart failure. The patient did have an MRCP yesterday that shows that he has no gallstones obstructing any of the bile ducts or hepatic ducts. The patient does have a recent history of fairly severe constipation so we will do a KUB today to see if he is backed up with stool causing his generalized abdominal discomfort. Past Medical Family Social History Allergies: Allergies No Known Drug Allergies Allergy (Verified 03/17/24 20:28) Review of Systems ROS: No change since H&P Vital Signs and I&O's Vital Signs: Vital Signs Temperature 97.6 F Temperature 97.6 F Pulse Rate 86 Pulse Rate 85 Pulse Rate 84 Respiratory Rate 18 Respiratory Rate 18 Respiratory Rate 17 Blood Pressure 121/74 Blood Pressure 131/90 O2 Sat by Pulse Oximetry 95 O2 Sat by Pulse Oximetry 96 Intake and Output: Intake & Output 03/17/24 03/18/24 03/19/24 03/20/24 11:59 11:59 11:59 11:59 Intake Total 475 / 475 3248 / 3248 1356 / 1356 Output Total 800 / 800 Balance 475 / 475 2448 / 2448 1356 / 1356 Physical Exam Oriented: Normal, Time, Person and Place Eyes: Normal Ear: Normal Nose: Normal Throat: Normal Respiratory: Normal Cardiovascular: Normal Auscultation: Bowel Sounds: Normal Tenderness: RUQ and Epigastric (Moderate epigastric and right upper quadrant tenderness) Skin: Normal Musculoskeletal: Normal Psychiatric: Agitation Mood Description: Depressed and Suspicious Affect: Depressed and Quiet Speech Pattern: Clear and Appropriate Laboratory and Diagnostics 03/19/24 05:00 03/19/24 05:00 Labs: Laboratory WBC 12.4 X10^3/uL (3.6-10.0) H 03/19/24 05:00 RBC 4.81 X10^6/uL (4.7-6.0) 03/19/24 05:00 Hgb 13.8 g/dL (13.5-18.0) D 03/19/24 05:00 Hct 43.7 % (42.0-54.0) 03/19/24 05:00 MCV 90.8 fL (80.0-100.0) 03/19/24 05:00 MCH 28.8 pg (27.0-34.0) 03/19/24 05:00 MCHC 31.7 g/dL (33.0-35.0) L 03/19/24 05:00 RDW 17.9 % (11.6-16.5) H 03/19/24 05:00 Plt Count 255 X10^3/uL (150.0-450.0) 03/19/24 05:00 MPV 7.9 fL (7.4-11.0) 03/19/24 05:00 Neut % (Auto) 62.4 % (42.0-75.0) 03/19/24 05:00 Lymph % (Auto) 17.5 % (21.0-51.0) L 03/19/24 05:00 [place] % (Auto) 13.3 % (0.0-13.0) H 03/19/24 05:00 Eos % (Auto) 6.2 % (0.9-2.9) H 03/19/24 05:00 Baso % (Auto) 0.6 % (0.2-1.0) 03/19/24 05:00 Neut # (Auto) 7.7 x10^3/uL (2.2-4.8) H 03/19/24 05:00 Lymph # (Auto) 2.2 X10^3/uL (1.3-2.9) 03/19/24 05:00 [place] # (Auto) 1.7 x10^3/uL (0.3-0.8) H 03/19/24 05:00 Eos # (Auto) 0.8 x10^3/uL (0.0-0.2) H 03/19/24 05:00 Baso # (Auto) 0.1 X10^3/uL (0.0-0.1) 03/19/24 05:00 Absolute Nucleated RBC 0.1 /100WBC 03/19/24 05:00 Sodium 135 mmol/L (136-145) L 03/19/24 05:00 Corrected Sodium 135 mmol/L (136-145) L 03/19/24 05:00 Potassium 3.9 mmol/L (3.5-5.1) 03/19/24 05:00 Chloride 104 mmol/L (98-107) 03/19/24 05:00 Carbon Dioxide 25.3 mmol/L (21-32) 03/19/24 05:00 BUN 18 mg/dL (7-18) 03/19/24 05:00 Creatinine 1.38 mg/dL (0.70-1.30) H 03/19/24 05:00 Est GFR (MDRD) Af Amer > 60 (>60) 03/19/24 05:00 Est GFR (MDRD) Non-Af > 60 (>60) 03/19/24 05:00 Glucose 115 mg/dL (65-99) H 03/19/24 05:00 Calcium 7.3 mg/dL (8.5-10.1) L 03/19/24 05:00 Corrected Calcium 9.1 mg/dL (8.5-10.1) 03/19/24 05:00 Magnesium 2.0 mg/dL (2.0-2.9) 03/18/24 04:13 Total Bilirubin 1.00 mg/dL (0.2-1.0) 03/19/24 05:00 AST 234 Units/L (15-37) H 03/19/24 05:00 ALT 397 Units/L (12-78) H 03/19/24 05:00 Alkaline Phosphatase 188 Units/L (46-116) H 03/19/24 05:00 Total Protein 5.7 g/dL (6.4-8.2) L 03/19/24 05:00 Albumin 1.8 g/dL (3.4-5.0) L 03/19/24 05:00 Globulin 3.9 g/dL (2.5-4.5) 03/19/24 05:00 Albumin/Globulin Ratio 0.5 Ratio (1.1-2.1) L 03/19/24 05:00 Amylase 31 Units/L (25-115) 03/18/24 04:13 Lipase 18 Units/L (16-77) 03/18/24 04:13 Specimen Type Clean catch urine 03/18/24 04:13 Urine Color Dark yellow (YELLOW) 03/18/24 04:13 Urine Appearance Clear (CLEAR) 03/18/24 04:13 Urine pH 6.0 (5.0 - 8.0) 03/18/24 04:13 Ur Specific [place] 1.015 (1.000-1.030) 03/18/24 04:13 Urine Protein 2+ (NEGATIVE) 03/18/24 04:13 Urine Glucose (UA) Negative (NEGATIVE) 03/18/24 04:13 Urine Ketones Negative (NEGATIVE) 03/18/24 04:13 Urine Blood Negative (NEGATIVE) 03/18/24 04:13 Urine Nitrite Negative (NEGATIVE) 03/18/24 04:13 Urine Bilirubin Negative (NEGATIVE) 03/18/24 04:13 Urine Urobilinogen Normal (NORMAL) 03/18/24 04:13 Ur Leukocyte Esterase Negative (NEGATIVE) 03/18/24 04:13 Urine RBC None seen /HPF (0-3) 03/18/24 04:13 Urine WBC 0-2 /HPF (0-5) 03/18/24 04:13 Ur Squamous Epith Cells Negative /HPF (NEGATIVE) 03/18/24 04:13 Urine Bacteria Negative /HPF (NEGATIVE) 03/18/24 04:13 Hyaline Casts Few /LPF (NEGATIVE) 03/18/24 04:13 Urine Mucus Few /HPF (NEGATIVE) 03/18/24 04:13 Ur Culture Indicated? No/not indicated 03/18/24 04:13 Digoxin 0.43 ng/mL (0.9-2) L 03/19/24 05:00 Radiology Reviewed: Yes Plan (1) Cardiomyopathy: Status: Acute Plan: Cardiology, Dr. Adame has seen the patient and states that he is high risk for cholecystectomy (2) Congestive heart failure: Status: Chronic (3) Grade III diastolic dysfunction: Status: Acute Plan: Treatment per cardiology (4) Elevated liver enzymes: Status: Acute Plan: Suspect the patient's liver enzymes will improve after cholecystectomy. (5) Abdominal pain, RUQ: Status: Acute (6) Hypertension: Status: Acute Plan: Monitor daily blood pressures. Continue carvedilol 6.25 mg p.o. twice daily, HCTZ 12.5 mg daily and Entresto. (7) Acute cholecystitis: Status: Ruled-out Plan: General surgery seeing the patient and plans for Lyn cystectomy. (8) Generalized abdominal pain: Status: Acute Plan: Check check KUB of the abdomen. If it shows a stool burden we will plan on doing enemas.
[2024-03-19] MEDS: MORPHINE SULFATE INJ 2 MG INJ IVP PRN (19:49)
[2024-03-19] MEDS ORDERED: NORCO 5/325 MG TAB ONE (22:47)
--- NOTE | 2024-03-19 22:49 | RAD ---
EXAM:KUBHISTORY:ABD BLOATING; ASTHMA, CHF, HTNCOMPARISON:03/17/2024.TECHNICAL QUALITY: SatisfactoryTECHNIQUE:A single supine view of the abdomen.FINDINGS:There is increased gaseous distention of small and large bowel loops since the earlier study. There is no free air. There is a paucity of gas in the rectum. No urinary tract calcifications are detected.IMPRESSION:Increasing but non-specific dilation of bowel loops.THIS IS AN ELECTRONICALLY VERIFIED FINAL REPORT03/19/2024 10:46 PM - Electronically signed by Talib Everett MD
[2024-03-19] MEDS: NORCO 5/325 MG TAB PO PRN (23:44)
[2024-03-20 04:08] VITALS: RESP 18
[2024-03-20 05:40] LABS: BASOPHILS # (AUTO) 0.1 X10^3/uL (0.0-0.1); BASOPHILS % (AUTO) 0.7 % (0.2-1.0); EOSINOPHILS # (AUTO) 0.3 x10^3/uL (0.0-0.2); HEMOGLOBIN 13.7 g/dL (13.5-18.0); LYMPHOCYTES # (AUTO) 1.2 X10^3/uL (1.3-2.9); LYMPHOCYTES % (AUTO) 12.2 % (21.0-51.0); MEAN CORPUSCULAR HEMOGLOBIN 28.8 pg (27.0-34.0); MEAN CORPUSCULAR HGB CONC 31.9 g/dL (33.0-35.0); MEAN CORPUSCULAR VOLUME 90.3 fL (80.0-100.0); MEAN PLATELET VOLUME 7.6 fL (7.4-11.0); MONOCYTES # (AUTO) 1.2 x10^3/uL (0.3-0.8); MONOCYTES % (AUTO) 11.8 % (0.0-13.0); NEUTROPHILS # (AUTO) 7.2 x10^3/uL (2.2-4.8); NEUTROPHILS % (AUTO) 72.3 % (42.0-75.0); PLATELET COUNT 266 X10^3/uL (150.0-450.0); RED BLOOD COUNT 4.76 X10^6/uL (4.7-6.0); WHITE BLOOD COUNT 9.9 X10^3/uL (3.6-10.0)
[2024-03-20 05:51] LABS: ALANINE AMINOTRANSFERASE 351 Units/L (12-78); ALBUMIN 2.1 g/dL (3.4-5.0); ALKALINE PHOSPHATASE 182 Units/L (46-116); ASPARTATE AMINO TRANSFERASE 170 Units/L (15-37); BLOOD UREA NITROGEN 11 mg/dL (7-18); CALCIUM 8.1 mg/dL (8.5-10.1); CHLORIDE 105 mmol/L (98-107); COR CA(FOR HYPOALB) 9.6 mg/dL (8.5-10.1); COR NA(FOR HYPERGLY) 139 mmol/L (136-145); CREATININE 1.12 mg/dL (0.70-1.30); GLUCOSE 205 mg/dL (65-99); POTASSIUM 4.3 mmol/L (3.5-5.1); SODIUM 136 mmol/L (136-145); TOTAL PROTEIN 6.1 g/dL (6.4-8.2); eGFR NON BLACK RACES > 60 (>60)
[2024-03-20] MEDS: MILK OF MAGNESIA PO PRN (09:04)
[2024-03-20] MEDS: COLACE CAP 100 MG PO PRN (09:04)
[2024-03-20 09:10] VITALS: PULSE 88
[2024-03-20 12:18] VITALS: BP 131/85; TEMP 97.5; O2SAT 98
== END 2024-03-20 11:35 | disposition home or self-care (01) ==
LOC: ER 19:42 → ICU 19:42
PROVIDERS: ADMIT Family Medicine; ATTEND Family Medicine
DX: I11.0 Hypertensive heart disease with heart failure; E87.1 Hypo-osmolality and hyponatremia; R74.8 Abnormal levels of other serum enzymes; E80.6 Other disorders of bilirubin metabolism; R06.02 Shortness of breath; I42.9 Cardiomyopathy, unspecified; F19.90 Other psychoactive substance use, unspecified, uncomplicated; K81.1 Chronic cholecystitis; Z65.8 Other specified problems related to psychosocial circumstances; I50.9 Heart failure, unspecified; R10.11 Right upper quadrant pain; E78.5 Hyperlipidemia, unspecified; R10.13 Epigastric pain